=== PATIENT | female | born 1970 | race Caucasian/White ===

== ENCOUNTER 2017-09-16 10:54 | Inpatient (IN) | payer MEDICARE ==
[~2017-09-16] VITALS: Ht 175.3 cm; Wt 133.2 kg
[2017-09-16] VITALS (16 sets, daily range): BP systolic 105–152; BP diastolic 57–82; PULSE 83–104; RESP 15–24; TEMP 98.3–99; O2SAT 96–100
[2017-09-16] MEDS ORDERED: SUCCINYLCHOLINE CHLORIDE 200 MG/10 ML VIAL ONE (11:07)
[2017-09-16] MEDS ORDERED: ETOMIDATE 40 MG/20 ML VIAL ONE (11:07)
[2017-09-16] MEDS ORDERED: SODIUM CHLORIDE 0.9% FLUSH 10 ML FLUSH IV FLUSH PRN (11:30)
[2017-09-16] MEDS ORDERED: ETOMIDATE 20 MG/10 ML VIAL IV PUSH ONE (11:30)
[2017-09-16] MEDS ORDERED: levETIRAcetam INJ 100 ML IV ONE (11:30)
[2017-09-16] MEDS ORDERED: SUCCINYLCHOLINE CHLORIDE 100 MG/5 ML SYRINGE IV PUSH ONE (11:30)
--- NOTE | 2017-09-16 11:46 | RADRPT ---
EXAM DATE: 09/16/2017 11:40 AM EDT AGE/SEX: 47 years / Female INDICATIONS: Syncope, seizures CLINICAL DATA: This is the patient's initial encounter. Patient reports that signs and symptoms have been present for 1 day and indicates a pain score of Nonresponsive. MEDICAL/SURGICAL HISTORY: . seizures per nurse Non-responsive. COMPARISON: No prior [place] exams available for comparison. FINDINGS: Endotracheal tube tip extends into the right mainstem bronchus. Retraction by several centimeters wou ld be suggested. Nasogastric tube descends to the stomach, however the proximal sidehole is in the di stal esophagus. There is mild asymmetric elevation or eventration of the right diaphragm. Accounting for projection, cardiac contours are grossly satisfactory. Right upper lobe aeration is mildly dimini shed which may relate to endotracheal tube positioning.. CONCLUSION: Endotracheal tube needs to be repositioned. Nasogastric tube could be advanced slightly Electronically signed by: Waldemar Romero MD 09/16/2017 11:44 AM EDT
[2017-09-16] MEDS: PROPOFOL 1000 MG/100 ML INJ 100 ML IV PRN ×2 (11:48→21:23)
[2017-09-16 12:01] LABS: AUTOMATED NEUTROPHIL # 5.9 TH/MM3 (1.8-7.7); BASOPHIL # 0.1 TH/MM3 (0-0.2); BASOPHIL % 0.7 % (0.0-2.0); EOSINOPHIL # 0.1 TH/MM3 (0-0.4); HEMATOCRIT 44.1 % (35.0-46.0); HEMOGLOBIN 14.3 GM/DL (11.6-15.3); LYMPH % 23.4 % (9.0-44.0); LYMPHOCYTE # 1.9 TH/MM3 (1.0-4.8); MEAN CELL VOLUME 88.7 FL (80.0-100.0); MEAN CORPUSCULAR HEMOGLOBIN 28.8 PG (27.0-34.0); MEAN CORPUSCULAR HGB CONC 32.5 % (32.0-36.0); MONO % 4.3 % (0.0-8.0); MONOCYTE # 0.4 TH/MM3 (0-0.9); NEUT % 70.6 % (16.0-70.0); PLATELET COUNT 296 TH/MM3 (150-450); RED BLOOD COUNT 4.97 MIL/MM3 (4.00-5.30); RED CELL DISTRIBUTION WIDTH 15.3 % (11.6-17.2); WHITE BLOOD COUNT 8.3 TH/MM3 (4.0-11.0)
--- NOTE | 2017-09-16 12:18 | RADRPT ---
EXAM DATE: 09/16/2017 12:15 PM EDT AGE/SEX: 47 years / Female INDICATIONS: Altered mental status. CLINICAL DATA: This is the patient's initial encounter. Patient reports that signs and symptoms have been present for 1 day and indicates a pain score of Nonresponsive. MEDICAL/SURGICAL HISTORY: Diabetes. None. RADIATION DOSE: 56.35 CTDI (mGy) COMPARISON: No prior exams available for comparison. TECHNIQUE: CT of the head without contrast. Using automated exposure control and adjustment of the mA and/or kV according to patient size, radiation dose was kept as low as reasonably achievable to ob tain optimal diagnostic quality images. FINDINGS: Cerebrum: The ventricles are normal for age. No evidence of midline shift, mass lesion, hemorrhage or acute infarction. No extraaxial fluid collections are seen. Posterior Fossa: The cerebellum and brainstem are intact. The 4th ventricle is midline. The cerebe llopontine angle is unremarkable. Extracranial: The visualized portion of the orbits is intact. Skull: The calvaria is intact. No evidence of skull fracture. CONCLUSION: Negative noncontrast head CT. Electronically signed by: Waldemar Gustafson MD 09/16/2017 12:17 PM EDT
[2017-09-16 12:28] LABS: BACTERIA, URINE MANY /hpf; BILIRUBIN, URINE NEG (NEG); BLOOD, URINE NEG (NEG); GLUCOSE,URINE 1000 mg/dL (NEG); HYALINE CAST, URINE 3 /lpf (RARE); KETONE, URINE NEG (NEG); MUCUS URINE FEW /lpf (OCC); NITRITE,URINE POS (NEG); PH, URINE 5.5 (5.0-8.5); URINE COLOR YELLOW (YELLW/STRAW); URINE LEUKOCYTE ESTERASE MOD (NEG)
[2017-09-16 12:41] LABS: ALBUMIN 3.8 GM/DL (3.4-5.0); ALKALINE PHOSPHATASE 85 U/L (45-117); ALT (GPT) 37 U/L (10-53); AST (GOT) 31 U/L (15-37); BICARBONATE 21.2 MEQ/L (21.0-32.0); BLOOD UREA NITROGEN 8 MG/DL (7-18); CALCIUM 8.6 MG/DL (8.5-10.1); CHLORIDE 107 MEQ/L (98-107); CREATININE 0.79 MG/DL (0.50-1.00); GLOMERULAR FILTRATION RATE 77 ML/MIN (>89); SODIUM (NA) 141 MEQ/L (136-145); TOTAL BILIRUBIN ADULT 0.2 MG/DL (0.2-1.0); TOTAL PROTEIN 7.3 GM/DL (6.4-8.2); TROPONIN I LESS THAN 0.02 NG/ML (0.02-0.05)
[2017-09-16 12:45] LABS: ACETAMINOPHEN LESS THAN 2.0 MCG/ML (10.0-30.0); GLUCOSE,RANDOM 219 MG/DL (74-106)
--- NOTE | 2017-09-16 12:55 | RADRPT ---
EXAM DATE: 09/16/2017 12:49 PM EDT AGE/SEX: 47 years / Female INDICATIONS: ET tube reposition. CLINICAL DATA: This is the patient's subsequent encounter. Patient reports that signs and symptoms h ave been present for 1 day and indicates a pain score of Nonresponsive. MEDICAL/SURGICAL HISTORY: Non-responsive. Non-responsive. COMPARISON: [facility] – [place], CHEST SINGLE AP, 09/16/2017. . FINDINGS: Endotracheal tube has been repositioned and is now in satisfactory position. Nasogastric tube is stab le. There is persistent mild asymmetric elevation of the right diaphragm and mild probable atelectasi s in the right midlung. Opacity in the right suprahilar region and medial apex may be infiltrate or a telectasis. Cardiac contours are grossly unchanged CONCLUSION: Endotracheal tube now in satisfactory position. Persistent right lung parenchymal opacities. Electronically signed by: Waldemar Romero MD 09/16/2017 12:53 PM EDT
[2017-09-16] MEDS ORDERED: VANCOMYCIN INJ 1,250 MG in SODIUM CHLOR 0.9% 250 ML INJ 250 ML IV ONE (13:15)
[2017-09-16] MEDS ORDERED: CEFEPIME INJ 1,000 MG in SODIUM CHLORIDE 0.9% INJ 100 ML IV ONE (13:15)
[2017-09-16] MEDS ORDERED: AZITHROMYCIN INJ 500 MG in SODIUM CHLOR 0.9% 250 ML INJ 250 ML IV ONE (13:15)
--- NOTE | 2017-09-16 13:24 | PD ---
HPI Chief Complaint: Altered Mental Status Time Seen by Provider: 11:16 Travel History International Travel<30 days: No Contact w/Intl Traveler<30days: No Traveled to known affect area: No History of Present Illness HPI Patient is a 47 year old female, brought in by EMS, unresponsive. EMS states that the boyfriend reported possible seizure like activity, but she has no history of this. Patient is unresponsive on arrival, unable to provide any history. The boyfriend came to the ED, brought the patient's medications. He says they have been together for 4 years and he has never known her to do anything like this. He says she does not use any drugs. He does report a psychiatric history /depression history, but does not think she has tried to hurt herself in the past. He says that she has seemed more paranoid in the past week. He says she did not complain of anything bothering her in the past few days. PFSH Past Medical History Anxiety: Yes Depression: Yes High Cholesterol: Yes Diabetes: Yes (METFORMIN) Patient Takes Glucophage: Yes Tetanus Vaccination: Unknown ?: Not Past Surgical History Surgical History: Unable to Obtain Social History Alcohol Use: No (UTO) Tobacco Use: No (UTO) Substance Use: No (UTO) Allergies-Medications (Allergen,Severity, Reaction): Coded Allergies: No Allergy Information Available (Unverified , 09/16/17) Reported Meds & Prescriptions Reported Meds & Active Scripts Active Reported Lorazepam 0.5 Mg Tab 0.5 Mg PO DAILY PRN Metformin (Metformin HCl) 500 Mg Tab 500 Mg PO BIDPC Lovastatin 20 Mg Tab 20 Mg PO DAILY Bupropion HCl ER 24 HR (Bupropion HCl) 300 Mg Tab 300 Mg PO DAILY Fluoxetine (Fluoxetine HCl) 40 Mg Cap 40 Cap PO DAILY Review of Systems ROS Limitations: Unresponsive Physical Exam Exam Limitations: Clinical Condition Narrative GENERAL: Unresponsive, snoring respirations. SKIN: Focused skin assessment warm/dry. No wounds or signs of infection. HEAD: Atraumatic. Normocephalic. EYES: Pupils equal and round and reactive. No scleral icterus. EOMI. ENT: Mucous membranes pink and moist. Blood present on the lips. NECK: Trachea midline. No JVD. CARDIOVASCULAR: Regular rate and rhythm. No murmur appreciated. RESPIRATORY: No accessory muscle use. Clear to auscultation. Breath sounds equal bilaterally. GASTROINTESTINAL: Abdomen soft, non-tender, nondistended. MUSCULOSKELETAL: No obvious deformities. No clubbing. No cyanosis. No edema. NEUROLOGICAL: Unresponsive, randomly opens her eyes, but not purposely. No obvious cranial nerve deficits. Seems to move all of her extremities spontaneously. Data Data Last Documented VS Vital Signs Date Time Temp Pulse Resp B/P (MAP) Pulse Ox O2 Delivery O2 Flow Rate FiO2 09/16/17 13:23 95 19 137/73 (94) 99 Ventilator 50 09/16/17 11:03 15.00 09/16/17 10:57 98.3 Orders Orders Etomidate Inj (Amidate Inj) (09/16/17 11:07) Succinylcholine Inj (Quelicin Inj) (09/16/17 11:07) Electrocardiogram (09/16/17 11:16) Complete Blood Count With Diff (09/16/17 11:16) Comprehensive Metabolic Panel (09/16/17 11:16) Creatine Kinase (Cpk) (09/16/17 11:16) Prothrombin Time / Inr (Pt) (09/16/17 11:16) Act Partial Throm Time (Ptt) (09/16/17 11:16) Troponin I (09/16/17 11:16) Thyroid Stimulating Hormone (09/16/17 11:16) Urinalysis - C+S If Indicated (09/16/17 11:16) Chest, Single Ap (09/16/17 11:16) Ct Brain W/O Iv Contrast(Rout) (09/16/17 11:16) Blood Glucose (09/16/17 11:16) Ecg Monitoring (09/16/17 11:16) Iv Access Insert/Monitor (09/16/17 11:16) Oximetry (09/16/17 11:16) Sodium Chloride 0.9% Flush (Ns Flush) (09/16/17 11:30) Drug Screen, Random Urine (09/16/17 11:16) Alcohol (Ethanol) (09/16/17 11:16) Tylenol (Acetaminophen) (09/16/17 11:16) Salicylates (Aspirin) (09/16/17 11:16) Urinary Catheter Management CASSIE.Q8H (09/16/17 11:16) Ed Urine Pregnancytest Poc (09/16/17 11:16) Succinylcholine Inj (Quelicin Inj) (09/16/17 11:30) Etomidate Inj (Amidate Inj) (09/16/17 11:30) Propofol 1000 Mg/100 Ml Inj (Diprivan 10 (09/16/17 11:30) Levetiracetam Inj (Keppra Inj) (09/16/17 11:30) Chest, Single Ap (09/16/17 ) Urine Culture (09/16/17 11:42) Arterial Blood Gas (Abg) (09/16/17 12:07) CKMB (09/16/17 11:42) CKMB% (09/16/17 11:42) Cefepime Inj (Maxipime Inj) (09/16/17 13:15) Vancomycin Inj (Vancomycin Inj) (09/16/17 13:15) Azithromycin Inj (Zithromax Inj) (09/16/17 13:15) Blood Culture (09/16/17 13:08) Admit To Inpatient (09/16/17 ) Code Status (09/16/17 13:31) Vital Signs (Adult) CASSIE.Q1H (09/16/17 13:31) Activity Bed Rest (09/16/17 13:31) Elevate Head Of Bed (09/16/17 13:31) Neuro Checks . ORDERED (09/16/17 13:31) Famotidine Inj (Pepcid Inj) (09/16/17 13:45) Albuterol-Ipratropium Neb (Duoneb Neb) (09/16/17 16:00) Complete Blood Count With Diff (09/17/17 04:00) Comprehensive Metabolic Panel (09/17/17 04:00) Magnesium (Mg) (09/17/17 04:00) Phosphorus (Po4) (09/17/17 04:00) Portable Eeg (09/16/17 ) Director Database / Telemetry CASSIE.Q8H (09/16/17 13:31) Scd Bilateral/Knee High CASSIE.BID (09/16/17 13:31) ^ Initiate Protocol (09/16/17 13:31) Instruction (09/16/17 13:31) Nursing Information [place] [place] [facility] [place] (09/16/17 13:45) Chlorhexidine 2% Cloth (Chlorhexidine 2% (09/17/17 04:00) Chlorhexidine 2% Cloth (Chlorhexidine 2% (09/16/17 13:45) Mrsa Pcr Surveillance (09/16/17 13:31) Docusate Sodium-Senna (Caron-Colace) (09/16/17 21:00) Magnesium Hydroxide Liq (Milk Of Magnesi (09/16/17 13:45) Sennosides (Senokot) (09/16/17 13:45) Bisacodyl Supp (Dulcolax Supp) (09/16/17 13:45) Lactulose Liq (Lactulose Liq) (09/16/17 13:45) Inpatient Certification (09/16/17 ) Sodium Chlor 0.9% 1000 Ml Inj (Ns 1000 M (09/16/17 13:45) Blood Glucose Goal (Criteria) (09/16/17 13:31) Hypoglycemia 70 Mg/Dl Or < (09/16/17 13:31) Notify Dr: Other (09/16/17 13:31) Dextrose 50% In Adrienne (Vial) Inj (D50w (Vi (09/16/17 13:45) Glucagon Inj (Glucagon Inj) (09/16/17 13:45) Insulin Human Reg Supp Scale (Novolin R (09/16/17 13:45) Admit Order (Ed Use Only) (09/16/17 ) Labs Laboratory Tests Test 09/16/17 11:42 09/16/17 12:07 White Blood Count 8.3 TH/MM3 Red Blood Count 4.97 MIL/MM3 Hemoglobin 14.3 GM/DL Hematocrit 44.1 % Mean Corpuscular Volume 88.7 FL Mean Corpuscular Hemoglobin 28.8 PG Mean Corpuscular Hemoglobin Concent 32.5 % Red Cell Distribution Width 15.3 % Platelet Count 296 TH/MM3 Mean Platelet Volume 8.0 FL Neutrophils (%) (Auto) 70.6 % Lymphocytes (%) (Auto) 23.4 % Monocytes (%) (Auto) 4.3 % Eosinophils (%) (Auto) 1.0 % Basophils (%) (Auto) 0.7 % Neutrophils # (Auto) 5.9 TH/MM3 Lymphocytes # (Auto) 1.9 TH/MM3 Monocytes # (Auto) 0.4 TH/MM3 Eosinophils # (Auto) 0.1 TH/MM3 Basophils # (Auto) 0.1 TH/MM3 CBC Comment DIFF FINAL Differential Comment Prothrombin Time 10.0 SEC Prothromb Time International Ratio 1.0 RATIO Activated Partial Thromboplast Time 25.4 SEC Urine Color YELLOW Urine Turbidity HAZY Urine pH 5.5 Urine Specific Sherrill 1.015 Urine Protein NEG mg/dL Urine Glucose (UA) 1000 mg/dL Urine Ketones NEG mg/dL Urine Occult Blood NEG Urine Nitrite POS Urine Bilirubin NEG Urine Urobilinogen LESS THAN 2.0 MG/DL Urine Leukocyte Esterase MOD Urine RBC 2 /hpf Urine WBC 11 /hpf Urine Bacteria MANY /hpf Urine Hyaline Casts 3 /lpf Urine Mucus FEW /lpf Microscopic Urinalysis Comment CATH-CULTURE IND Blood Urea Nitrogen 8 MG/DL Creatinine 0.79 MG/DL Random Glucose 219 MG/DL Total Protein 7.3 GM/DL Albumin 3.8 GM/DL Calcium Level 8.6 MG/DL Alkaline Phosphatase 85 U/L Aspartate Amino Transf (AST/SGOT) 31 U/L Alanine Aminotransferase (ALT/SGPT) 37 U/L Total Bilirubin 0.2 MG/DL Sodium Level 141 MEQ/L Potassium Level 4.5 MEQ/L Chloride Level 107 MEQ/L Carbon Dioxide Level 21.2 MEQ/L Anion Gap 13 MEQ/L Estimat Glomerular Filtration Rate 77 ML/MIN Total Creatine Kinase 199 U/L Creatine Kinase MB 1.7 NG/ML Creatine Kinase MB % 0.9 % Troponin I LESS THAN 0.02 NG/ML Thyroid Stimulating Hormone 3rd Gen 10.700 uIU/ML Human Chorionic Gonadotropin, Quant 3 MIU/ML Salicylates Level LESS THAN 1.7 MG/DL Urine Opiates Screen NEG Acetaminophen Level LESS THAN 2.0 MCG/ML Urine Barbiturates Screen NEG Urine Amphetamines Screen POS Urine Benzodiazepines Screen NEG Urine Cocaine Screen NEG Urine Cannabinoids Screen NEG Ethyl Alcohol Level LESS THAN 3 MG/DL Blood Gas Puncture Site RT RADIAL Blood Gas Patient Temperature 98.6 Blood Gas HCO3 25 mmol/L Blood Gas Base Excess 0.3 mmol/L Blood Gas Oxygen Saturation 96 % Arterial Blood pH 7.35 Arterial Blood Partial Pressure CO2 46 mmHg Arterial Blood Partial Pressure O2 109 mmHG Arterial Blood Oxygen Content 18.8 Vol % Arterial Blood Carboxyhemoglobin 1.4 % Arterial Blood Methemoglobin 0.8 % Blood Gas Hemoglobin 13.9 G/DL Oxygen Delivery Device VENTILATOR Blood Gas Ventilator Setting Blood Gas Inspired Oxygen 50 % MDM Medical Decision Making Medical Screen Exam Complete: Yes Emergency Medical Condition: Yes Differential Diagnosis ICH vs intoxication vs seizure vs status epilepticus Narrative Course Patient is a 47 year old female who comes in unresponsive. She randomly opens her eyes, but not purposely. She is exhibiting snoring respirations. Decision made to intubate the patient for airway protection. Just before intubation performed patient had another seizure. It lasted only a few seconds, but she still has not regained consciousness. Intubation performed without incident. Labs sent show no acute abnormalities, but UA is positive for UTI. Drug screen positive for amphetamines. Patient started on a Propofol drip. Given Keppra. On review of the medications that were brought in by the boyfriend, patient had a prescription for 45 Ativan that is empty. Tox screen however, is negative for benzos. CXR shows right sided opacities. Given Cefepime, Azithromycin, Vancomycin. Patient will be admitted to ICU for further management. ' I spoke with Dr. Ralph of neurology who suggests loading with Fosphenytoin and dosing 100mg every 8 hrs. This has been ordered. Critical Care Narrative Aggregate critical care time was 45 minutes. Time to perform other separately billable procedures was not included in the critical care time. My time did not include minutes spent treating any other patients simultaneously or on activities that did not directly contribute to the patient's treatment. The services I provided to this patient were to treat and/or prevent clinically significant deterioration that could result in: Serious illness or I provided critical care services requiring my management, as noted below: Chart data review, documentation time, medication orders and management, vital sign assessments/reviewing monitor data, ordering and reviewing lab tests, ordering and interpreting/reviewing x-rays and diagnostic studies, care of the patient and discussion of the patient with the admitting physicians. Procedures Procedure Narrative After the risks and benefits were discussed the following procedure was performed: INTUBATION: The patient was put in optimal position for the procedure. Rapid sequence intubation was initiated by me using 20 milligrams of etomidate IV and 100 milligrams of succinylcholine IV. The patient was intubated with a 8.0 cuffed endotracheal tube. Tube placement was confirmed by visualization of the tube and balloon passing through the cords, capnometry and subsequent chest x-ray. Breath sounds were equal and well aerated bilaterally postintubation. No breath sounds over stomach. Patient tolerated procedure well. Diagnosis Primary Impression: Unresponsive state Additional Impressions: Status epilepticus UTI (urinary tract infection) Qualified Codes: N30.00 - Acute cystitis without hematuria Admitting Information Admitting Physician Requests: it Farida Mccann MD Sep 16, 2017 13:24
[2017-09-16] MEDS ORDERED: FOSPHENYTOIN INJ 1,000 MGPE in SODIUM CHLORIDE 0.9% INJ 50 ML IV ONE (13:45)
[2017-09-16] MEDS ORDERED: LACTULOSE SYRUP 20 GM/30 ML CUP PO PRN (13:45)
[2017-09-16] MEDS ORDERED: CHLORHEXIDINE GLUCONATE 2 % 1 PACK (2 CLOTHS) TOP PRN (13:45)
[2017-09-16] MEDS ORDERED: MAGNESIUM HYDROXIDE SUSP 30 ML CUP PO PRN (13:45)
[2017-09-16] MEDS ORDERED: BISACODYL 10 MG SUPP RECTAL PRN (13:45)
[2017-09-16] MEDS ORDERED: SENNOSIDES 8.6 MG TAB PO PRN (13:45)
[2017-09-16] MEDS ORDERED: NURSING INFORMATION XX SCH (13:45)
[2017-09-16] MEDS ORDERED: GLUCAGON 1 MG/ML VIAL OTHER PRN (13:45)
[2017-09-16] MEDS ORDERED: DEXTROSE 50% IN WATER 50 ML VIAL(D50) IV PUSH PRN (13:45)
[2017-09-16] MEDS ORDERED: FOSPHENYTOIN SODIUM 100 MG PE/2 ML VIAL IV SCH (14:00)
[2017-09-16] MEDS: FAMOTIDINE 20 MG/2 ML VIAL IV PUSH SCH ×2 (14:26→21:22)
[2017-09-16] MEDS: SODIUM CHLOR 0.9% 1000 ML INJ 1,000 ML IV SCH (14:27)
[2017-09-16] MEDS ORDERED: LORazepam 2 MG/ML VIAL IV PUSH PRN (14:30)
[2017-09-16] MEDS: INSULIN NovoLIN REGULAR SUPPLEMENTAL SCALE SQ SCH ×3 (14:36→21:23)
--- NOTE | 2017-09-16 14:47 | MB ---
cc: Byron Ralph MD, PhD DATE: 09/16/2017 REASON FOR CONSULTATION: Seizure. HISTORY OF PRESENT ILLNESS: Ms. Calhoun is a 47-year-old female, who was found obtunded today, brought to the ER, had a generalized seizure. Apparently, the patient has had several seizures this morning. No history of seizure in the past. Her boyfriend brought the medications. She apparently takes Ativan, but the bottle was empty. It is unknown how long she has been out of this for. PAST MEDICAL HISTORY: History of anxiety, depression, diabetes, hypercholesterolemia. MEDICATIONS: Currently, she is on: 1. Propofol. 2. Synthroid. 3. Cerebyx, received 1000 mg loading, 100 mg IV every 8 hours. 4. She received 1000 mg Keppra load. 5. Piperacillin. 6. Famotidine. 7. Senokot. 8. Dulcolax. 9. Lactulose p.r.n. NEUROLOGICAL EXAMINATION: VITAL SIGNS: Blood pressure is 137/73, pulse 95, respiratory rate is 19, temperature is 98.3 degrees. HIGHER CORTICAL FUNCTION: She is obtunded and sedated, does not follow commands. Cranial nerves: The pupils are 2 mm, symmetric and reactive to light. Extraocular movements intact. Motor exam: No spontaneous movement. IMAGING STUDIES: A CT of the brain is normal. LABORATORY DATA: White count is 8300, hemoglobin 14.3, hematocrit 44%, platelet count 296,000. Sodium is 141, potassium 4.5, chloride 107, CO2 of 21.2. The BUN is 8, creatinine 0.79, GFR 77, glucose 219, AST 31, ALT 37. TSH is 10.7. PT 10, INR 1, APTT 25.4. Tox screen positive for amphetamines. Alcohol level less than 3. IMPRESSION: Frequent seizures, now postictal. Her urine toxicology screen positive for amphetamines, which may be contributory. Also, there is a concern of the possibility of withdrawal from Ativan as a cause. RECOMMENDATION: Continue the Cerebyx. We will review the EEG. So far, the preliminary EEG does not show any status epilepticus. Also obtain an MRI of the brain. Byron Ralph MD, PhD FADUMO/CARMEN , 02:30 PM , 02:46 PM
--- NOTE | 2017-09-16 15:26 | MH ---
cc: Nevaeh Doty MD DATE OF ADMISSION: 09/16/2017 HISTORY OF PRESENT ILLNESS: The patient is a 47-year-old female with a history of hypothyroidism, diabetes mellitus, anxiety, depression, who presented to [facility] ED via EMS for altered mental status. Per ED records, EMS found the patient unresponsive and her boyfriend related a possible seizure-like activity. The patient has no history of any seizure disorder. In the ED, she was intubated with etomidate and succinylcholine and placed on full mechanical ventilation for airway protection. A CT scan of the brain was unremarkable. In the ED, she was given 1 gram of Keppra and 1 gram loading dose of Cerebyx. The patient is currently getting an EEG and she is scheduled to undergo MRI of the brain without contrast. Dr. Ralph from Neurology service was notified by ED regarding the above findings. When seen, the patient is sedated with Diprivan and on full mechanical ventilation. ABG post-intubation showed a pH of 7.35, CO2 46, PaO2 109, bicarbonate 25, saturation 96%. Her urine drug screen was positive for amphetamines. PAST MEDICAL HISTORY: Significant for anxiety, depression, hyperlipidemia, diabetes mellitus, hypothyroidism. PAST SURGICAL HISTORY: Unobtainable. SOCIAL HISTORY: Nonsmoker, nondrinker. ALLERGIES: UNOBTAINABLE. MEDICATIONS: Reported medications: Unknown. REVIEW OF SYSTEMS: As per HPI. Otherwise, the rest of the review of systems limited. PHYSICAL EXAMINATION: GENERAL: A 47-year-old female, intubated for airway protection. VITAL SIGNS: Afebrile, pulse of 91, blood pressure 123/68, saturation 100%. Vent settings PRVC rate of 14, tidal volume 500, I time 1.0, PEEP 5, FiO2 50%. HEENT: Atraumatic, normocephalic. Pupils are equal, round, reactive to light and accommodation. Extraocular muscles intact. Conjunctivae pink. Nonicteric sclerae. Oral mucosa within normal. NECK: Supple. No JVD, adenopathy or thyromegaly. Trachea midline. CARDIOVASCULAR: Regular rate and rhythm. Normal S1, S2. No murmurs, rubs or gallops noted. PULMONARY: Bilateral equal air entry. No rales or wheezing. ABDOMEN: Soft, obese, nontender, nondistended, positive bowel sounds. EXTREMITIES: No cyanosis, clubbing. Nonpitting edema. NEUROLOGIC: Intubated, sedated. LABORATORY DATA: Sodium 141, potassium 4.5, chloride 107, CO2 21, BUN 8, creatinine 0.79, glucose 219. Total CK 129, AST 31, ALT 37, total bilirubin 0.2. Troponin less than 0.02. TSH 10.7. WBC 8.3, hemoglobin 14.3, hematocrit 44, platelet count 296. Urine drug screen positive for amphetamines. Radiographic studies: CT brain unremarkable. Chest x-ray showed ET tube above the anthony, right lung parenchymal opacities. Urinalysis positive for moderate leukocyte esterase, many bacteria, 11 WBCs. IMPRESSION: 1. Vent dependent respiratory failure. 2. Altered mental status. 3. Possible seizure disorder. 4. Urinary tract infection. 5. Hyperglycemia with underlying history of diabetes mellitus. 6. Hypothyroidism. 7. Morbid obesity. 8. History of anxiety and depression. RECOMMENDATIONS: 1. Monitor neuro status closely and continue with Diprivan infusion for sedation. Daily sedation vacation when appropriate. CT scan of the brain negative for acute intracranial findings and her urine drug screen positive for amphetamines. The patient for an MRI of the brain without contrast. In addition, she is currently getting EEG. Status post Keppra 1 gram and Cerebyx 1 gram x 1 in the ED. In addition, the patient was placed on Cerebyx 100 mg IV q. 8 hours. Monitor Dilantin level. Dr. Ralph from Neurology service was notified. 2. Continue with vent support and maintain sats above 92%. 3. Bronchodilators in the form of DuoNeb q. 6 hours. We will initiate ICU vent bundle. Decrease FiO2 to 40%. 4. Monitor heart rate and blood pressure closely and maintain MAP greater than 65 mmHg. We will obtain 2D echo to evaluate LV function and rule out regional wall motion abnormalities. Place on NS at 84 mL an hour. 5. Monitor renal function, I's and O's and electrolyte replacement per protocol. IV fluids as stated above. 6. Keep n.p.o. for now and place on Pepcid 20 mg IV every 12 hours. We will start nutritional support within the next 24 hours if the patient remains intubated. 7. Continue with antibiotics in the form of Zosyn and monitor for signs of infections, which include fever and WBC. Followup blood and urine cultures. In addition, we will obtain a sputum culture with Gram stain. She received cefepime, vancomycin and azithromycin in the ED. 8. Place on a medium sliding scale insulin with Accu-Cheks for glycemic control. A TSH measured at 10.7. We will start Synthroid 50 mcg daily. We will check free T4 and free T3 level. 9. Monitor CBC. 10. Gastrointestinal prophylaxis with Pepcid 20 mg every 12 hours and DVT prophylaxis with SCDs for now. 11. Further recommendations will be based on hospital course. MD ANISHA Johnson/CARMEN , 02:54 PM , 03:25 PM
[2017-09-16] MEDS ORDERED: GADODIAMIDE PF 287 MG/ML 5 ML VIAL (for RAD MRI) IVCONTRAST ONE (15:28)
--- NOTE | 2017-09-16 15:35 | MG ---
cc: Byron Ralph MD, PhD DATE OF STUDY: 09/16/2017 EEG TEST NUMBER: [id number]. TECHNIQUE: This is a 17-channel EEG. DESCRIPTION: The background rhythm is generally slow in the delta frequency at roughly 3-4 Hz. At times, there is more of a theta rhythm. There is some muscle artifact in the frontal leads. No epileptiform discharges are identified. No lateralizing features are seen. Photic results in a poor driving response. INTERPRETATION: Abnormal study consistent with a significant encephalopathy versus postictal state. Byron Ralph MD, PhD FADUMO/SB , 03:23 PM , 03:34 PM
--- NOTE | 2017-09-16 15:48 | RADRPT ---
EXAM DATE: 09/16/2017 3:34 PM EDT AGE/SEX: 47 years / Female INDICATIONS: Seizures. CLINICAL DATA: This is the patient's initial encounter. Patient reports that signs and symptoms have been present for 1 day and indicates a pain score of Nonresponsive. MEDICAL/SURGICAL HISTORY: Non-responsive. Non-responsive. [place] [facility] [place]16/[place]. . TECHNIQUE: Multiplanar, multisequence examination of the brain was performed without and with 23 ml O mniscan (gadodiamide) contrast as a single exam dose. FINDINGS: Cerebrum: The ventricles are normal for age. No evidence of midline shift, mass lesion, hemorrhage or acute infarction. No extraaxial fluid collections are seen. The pituitary gland and suprasellar cistern are normal in configuration. White Matter: No significant signal abnormalities are seen in the white matter. Posterior Fossa: The cerebellum and brainstem are intact. The 4th ventricle is midline. The cerebel lopontine angle is unremarkable. The cerebellar tonsils are normal in position. Diffusion Imaging: No focal areas of restricted diffusion are seen. No evidence of acute infarction . Extracranial: The visualized portions of the orbits and paranasal sinuses are unremarkable. Post Contrast: No abnormal areas of parenchymal or dural enhancement. No evidence of blood-brain ba rrier breakdown. CONCLUSION: Negative MR Brain with and without contrast. Electronically signed by: Waldemar Romero MD 09/16/2017 3:47 PM EDT
[2017-09-16] MEDS: RESP: ALBUTEROL 2.5 MG/IPRATROPIUM 0.5 MG NEB (SCH) INH ×2 (16:00→20:23)
[2017-09-16] MEDS ORDERED: LOVA20TA PO (17:09)
[2017-09-16] MEDS ORDERED: METF500T PO (17:09)
[2017-09-16] MEDS ORDERED: BUPR300T PO (17:09)
[2017-09-16] MEDS ORDERED: FLUO40CA PO (17:09)
[2017-09-16] MEDS ORDERED: LORA0.5T PO (17:09)
[2017-09-16] MEDS: PIPERACIL-TAZO 4.5 GM PREMIX 100 ML IV SCH ×2 (17:19→21:22)
[2017-09-16] MEDS: FOSPHENYTOIN SODIUM 100 MG PE/2 ML VIAL IV SCH (21:23)
[2017-09-16] MEDS: DOCUSATE SODIUM 50 MG/SENNA 8.6 MG TAB PO SCH (21:23)
[2017-09-17] VITALS (19 sets, daily range): BP systolic 110–135; BP diastolic 67–84; PULSE 84–98; RESP 16–29; TEMP 99–99.9; O2SAT 93–97
[2017-09-17] MEDS: PIPERACIL-TAZO 4.5 GM PREMIX 100 ML IV SCH ×4 (00:50→22:00)
[2017-09-17] MEDS: SODIUM CHLOR 0.9% 1000 ML INJ 1,000 ML IV SCH (00:51)
[2017-09-17] MEDS: INSULIN NovoLIN REGULAR SUPPLEMENTAL SCALE SQ SCH ×6 (01:00→21:45)
[2017-09-17] MEDS: RESP: ALBUTEROL 2.5 MG/IPRATROPIUM 0.5 MG NEB (SCH) INH ×4 (03:51→21:05)
[2017-09-17 04:47] LABS: AUTOMATED NEUTROPHIL # 9.7 TH/MM3 (1.8-7.7); BASOPHIL # 0.1 TH/MM3 (0-0.2); BASOPHIL % 0.4 % (0.0-2.0); EOSINOPHIL % 0.3 % (0.0-4.0); HEMATOCRIT 38.8 % (35.0-46.0); HEMOGLOBIN 12.7 GM/DL (11.6-15.3); LYMPH % 11.6 % (9.0-44.0); LYMPHOCYTE # 1.4 TH/MM3 (1.0-4.8); MEAN CORPUSCULAR HEMOGLOBIN 28.7 PG (27.0-34.0); MEAN CORPUSCULAR HGB CONC 32.6 % (32.0-36.0); MEAN PLATELET VOLUME 7.9 FL (7.0-11.0); MONO % 4.6 % (0.0-8.0); MONOCYTE # 0.5 TH/MM3 (0-0.9); NEUT % 83.1 % (16.0-70.0); PLATELET COUNT 261 TH/MM3 (150-450); RED BLOOD COUNT 4.41 MIL/MM3 (4.00-5.30); RED CELL DISTRIBUTION WIDTH 15.4 % (11.6-17.2); WHITE BLOOD COUNT 11.7 TH/MM3 (4.0-11.0)
[2017-09-17 05:10] LABS: ALBUMIN 3.3 GM/DL (3.4-5.0); AST (GOT) 26 U/L (15-37); BICARBONATE 23.7 MEQ/L (21.0-32.0); BLOOD UREA NITROGEN 9 MG/DL (7-18); CALCIUM 8.1 MG/DL (8.5-10.1); CHLORIDE 108 MEQ/L (98-107); CREATININE 0.72 MG/DL (0.50-1.00); GLOMERULAR FILTRATION RATE 86 ML/MIN (>89); GLUCOSE,RANDOM 167 MG/DL (74-106); MAGNESIUM 2.1 MG/DL (1.5-2.5); SODIUM (NA) 142 MEQ/L (136-145)
[2017-09-17 05:22] LABS: ALKALINE PHOSPHATASE 60 U/L (45-117); ALT (GPT) 35 U/L (10-53); FREE T3 1.53 PG/ML (2.18-3.98); FREE T4 1.16 NG/DL (0.76-1.46); PHENYTOIN (DILANTIN) 6.2 MCG/ML (10.0-20.0); PHOSPHORUS 2.7 MG/DL (2.5-4.9); TOTAL BILIRUBIN ADULT 0.3 MG/DL (0.2-1.0); TOTAL PROTEIN 6.3 GM/DL (6.4-8.2)
[2017-09-17] MEDS: LEVOTHYROXINE SODIUM 50 MCG TAB PO SCH (05:53)
[2017-09-17] MEDS: FOSPHENYTOIN SODIUM 100 MG PE/2 ML VIAL IV SCH ×2 (05:53→13:18)
[2017-09-17] MEDS: CHLORHEXIDINE GLUCONATE 2 % 1 PACK (2 CLOTHS) TOP SCH (05:53)
[2017-09-17] MEDS: PROPOFOL 1000 MG/100 ML INJ 100 ML IV PRN (05:54)
[2017-09-17] MEDS: DOCUSATE SODIUM 50 MG/SENNA 8.6 MG TAB PO SCH ×2 (07:41→22:00)
[2017-09-17] MEDS: FAMOTIDINE 20 MG/2 ML VIAL IV PUSH SCH ×2 (07:42→22:00)
--- NOTE | 2017-09-17 10:30 | HHI.CCPN ---
Subjective Remarks/Hospital Course Patient is a 47-year-old female with a history of hypothyroidism, diabetes mellitus, anxiety, depression, who presented to [facility] ED via EMS for altered mental status. Per ED records, EMS found the patient unresponsive and her boyfriend related a possible seizure-like activity. The patient has no history of any seizure disorder. In the ED, she was intubated with etomidate and succinylcholine and placed on full mechanical ventilation for airway protection. A CT scan of the brain was unremarkable. In the ED, she was given 1 gram of Keppra and 1 gram loading dose of Cerebyx. The patient is currently getting an EEG and she is scheduled to undergo MRI of the brain without contrast. Dr. Ralph from Neurology service was notified by ED regarding the above findings. When seen, the patient is sedated with Diprivan and on full mechanical ventilation. ABG post-intubation showed a pH of 7.35, CO2 46, PaO2 109, bicarbonate 25, saturation 96%. Her urine drug screen was positive for amphetamines. 09/17 Patient remains sedated and intubated. MRI brain yesterday unremarkable. Afebrile.. Objective Vital Signs Date Time Temp Pulse Resp B/P (MAP) Pulse Ox O2 Delivery O2 Flow Rate FiO2 09/17/17 10:00 84 09/17/17 08:58 96 40 09/17/17 08:00 99.0 24 125/72 (89) 09/16/17 15:21 Ventilator 09/16/17 11:03 15.00 Intake and Output 09/17/17 09/17/17 09/18/17 08:00 16:00 00:00 Intake Total 752 ml Output Total 450 ml Balance 302 ml Result Diagram: 09/17/17 0355 09/17/17 0355 Other Results Laboratory Tests Test 09/16/17 11:42 09/16/17 12:07 09/16/17 16:35 09/17/17 03:55 White Blood Count 8.3 TH/MM3 11.7 TH/MM3 Red Blood Count 4.97 MIL/MM3 4.41 MIL/MM3 Hemoglobin 14.3 GM/DL 12.7 GM/DL Hematocrit 44.1 % 38.8 % Mean Corpuscular Volume 88.7 FL 88.0 FL Mean Corpuscular Hemoglobin 28.8 PG 28.7 PG Mean Corpuscular Hemoglobin Concent 32.5 % 32.6 % Red Cell Distribution Width 15.3 % 15.4 % Platelet Count 296 TH/MM3 261 TH/MM3 Mean Platelet Volume 8.0 FL 7.9 FL Neutrophils (%) (Auto) 70.6 % 83.1 % Lymphocytes (%) (Auto) 23.4 % 11.6 % Monocytes (%) (Auto) 4.3 % 4.6 % Eosinophils (%) (Auto) 1.0 % 0.3 % Basophils (%) (Auto) 0.7 % 0.4 % Neutrophils # (Auto) 5.9 TH/MM3 9.7 TH/MM3 Lymphocytes # (Auto) 1.9 TH/MM3 1.4 TH/MM3 Monocytes # (Auto) 0.4 TH/MM3 0.5 TH/MM3 Eosinophils # (Auto) 0.1 TH/MM3 0.0 TH/MM3 Basophils # (Auto) 0.1 TH/MM3 0.1 TH/MM3 CBC Comment DIFF FINAL DIFF FINAL Differential Comment Prothrombin Time 10.0 SEC Prothromb Time International Ratio 1.0 RATIO Activated Partial Thromboplast Time 25.4 SEC Urine Color YELLOW Urine Turbidity HAZY Urine pH 5.5 Urine Specific [place] 1.015 Urine Protein NEG mg/dL Urine Glucose (UA) 1000 mg/dL Urine Ketones NEG mg/dL Urine Occult Blood NEG Urine Nitrite POS Urine Bilirubin NEG Urine Urobilinogen LESS THAN 2.0 MG/DL Urine Leukocyte Esterase MOD Urine RBC 2 /hpf Urine WBC 11 /hpf Urine Bacteria MANY /hpf Urine Hyaline Casts 3 /lpf Urine Mucus FEW /lpf Microscopic Urinalysis Comment CATH-CULTURE IND Blood Urea Nitrogen 8 MG/DL 9 MG/DL Creatinine 0.79 MG/DL 0.72 MG/DL Random Glucose 219 MG/DL 167 MG/DL Total Protein 7.3 GM/DL 6.3 GM/DL Albumin 3.8 GM/DL 3.3 GM/DL Calcium Level 8.6 MG/DL 8.1 MG/DL Alkaline Phosphatase 85 U/L 60 U/L Aspartate Amino Transf (AST/SGOT) 31 U/L 26 U/L Alanine Aminotransferase (ALT/SGPT) 37 U/L 35 U/L Total Bilirubin 0.2 MG/DL 0.3 MG/DL Sodium Level 141 MEQ/L 142 MEQ/L Potassium Level 4.5 MEQ/L 4.0 MEQ/L Chloride Level 107 MEQ/L 108 MEQ/L Carbon Dioxide Level 21.2 MEQ/L 23.7 MEQ/L Anion Gap 13 MEQ/L 10 MEQ/L Estimat Glomerular Filtration Rate 77 ML/MIN 86 ML/MIN Total Creatine Kinase 199 U/L Creatine Kinase MB 1.7 NG/ML Creatine Kinase MB % 0.9 % Troponin I LESS THAN 0.02 NG/ML Thyroid Stimulating Hormone 3rd Gen 10.700 uIU/ML 2.470 uIU/ML Human Chorionic Gonadotropin, Quant 3 MIU/ML Salicylates Level LESS THAN 1.7 MG/DL Urine Opiates Screen NEG Acetaminophen Level LESS THAN 2.0 MCG/ML Urine Barbiturates Screen NEG Urine Amphetamines Screen POS Urine Benzodiazepines Screen NEG Urine Cocaine Screen NEG Urine Cannabinoids Screen NEG Ethyl Alcohol Level LESS THAN 3 MG/DL Blood Gas Puncture Site RT RADIAL Blood Gas Patient Temperature 98.6 Blood Gas HCO3 25 mmol/L Blood Gas Base Excess 0.3 mmol/L Blood Gas Oxygen Saturation 96 % Arterial Blood pH 7.35 Arterial Blood Partial Pressure CO2 46 mmHg Arterial Blood Partial Pressure O2 109 mmHG Arterial Blood Oxygen Content 18.8 Vol % Arterial Blood Carboxyhemoglobin 1.4 % Arterial Blood Methemoglobin 0.8 % Blood Gas Hemoglobin 13.9 G/DL Oxygen Delivery Device VENTILATOR Blood Gas Ventilator Setting Blood Gas Inspired Oxygen 50 % Nasal Screen MRSA (PCR) MRSA NOT DETECTED Phosphorus Level 2.7 MG/DL Magnesium Level 2.1 MG/DL Free Thyroxine 1.16 NG/DL Free Triiodothyronine (T3) pg/dL 1.53 PG/ML Phenytoin (Dilantin) Level 6.2 MCG/ML Imaging Last Impressions Head CT 09/16/17 111 Signed Impressions: CONCLUSION: Negative noncontrast head CT. Chest X-Ray 09/16/171115 Signed Impressions: CONCLUSION: Endotracheal tube needs to be repositioned. Nasogastric tube could be advanced slightly Brain MRI 09/16/17 0000 Signed Impressions: CONCLUSION: Negative MR Brain with and without contrast. Objective Remarks GENERAL: Patient is 47 yo intubated and sedated SKIN: Warm and dry. HEAD: Normocephalic. EYES: No scleral icterus. No injection or drainage. NECK: Supple, trachea midline. No JVD or lymphadenopathy. CARDIOVASCULAR: Regular rate and rhythm without murmurs, gallops, or rubs. RESPIRATORY: Breath sounds equal bilaterally. No accessory muscle use. GASTROINTESTINAL: Abdomen soft, non-tender, nondistended. MUSCULOSKELETAL: No cyanosis, or edema. Neuro: sedated A/P Assessment and Plan 1. VDRF 2. AMS 3. Possible seizure disorder. 4. Urinary tract infection. 5. Hyperglycemia 6. Hypothyroidism. 7. Morbid obesity. 8. History of anxiety and depression. Plan Neuro: On Diprivan infusion for sedation. Daily sedation vacation. CT brain negative for acute intracranial findings. UDS: positive for amphetamines. MRI brain: Unremarkable. Given Keppra and Cerbyx in ED. on Cerebyx 100 mg IV q. 8 hours.Dilantin level: 6.7 Neuro is following- Dr. Ralph- Follow up on EEG results Pulm: Continue with vent support and maintain sats above 92%. Bronchodilators, ICU vent bundle. Start SBT as pablo and possible extubation today : Monitor HR and BP and maintain MAP> 65 mmHg. For 2D echo today : Monitor renal function, I's and O's and electrolyte replacement per protocol. On NS@84ml/hr GI: on Pepcid 20 mg IV every 12 hours. Start tube feeds today if remains intubated. ID: Continue with abx( Zosyn) and monitor for signs of infections( fever and WBC). Followup on cultures from 09/16 Endo: On medium SSI with Accu-Cheks for glycemic control. On Synthroid 50mcg daily. TSH: 2.47 today from 10.7 yesterday, FT3: 1.53 Heme: Monitor CBC. GI prophylaxis with Pepcid 20 mg every 12 hours and DVT prophylaxis with SCDs/ heparin SQ Spoke to patient;s family updated them on her condition all questions answered and they voiced understanding. They are also requesting to talk to Dr. Ralph . Patient was self extubated and now is on 4L oxygen with good sats. Awake and alert. Passed bedside swallow eval. No recurrent seizures. Will sign off and transfer care to [facility]. Level 3 Nevaeh Doty MD Sep 17, 2017 10:30
--- NOTE | 2017-09-17 16:22 | EKG ---
Date Performed: 09/16/2017 Time Performed: 12:46:56 PTAGE: 47 years EKG: Sinus tachycardia Moderate intraventricular conduction delay Nonspecific T-wave abnormality Delayed R-wave transition NO PREVIOUS TRACING DOCTOR: Vesta Tee Interpretating Date/Time 09/17/2017 16:20:49
--- NOTE | 2017-09-17 21:37 | HHI.PR ---
Review/Management Diagnosis new onset GTC sz Plan change cerebyx to po dilantin give additional cerebyx 500 mg due to subtherapeutic phenytoin level and recheck level in am Diagnosis/Plan: Subjective Subjective Comments No acute events reported No headache no sz Active Medications Current Medications Medications (Trade) Dose Ordered Sig/Meng Route Start Time Stop Time Status Last Admin (NS Flush) 2 ml UNSCH PRN IV FLUSH 09/16/17 11:30 (Pepcid Inj) 20 mg Q12HR IV PUSH 09/16/17 13:45 09/17/17 07:42 (Duoneb Neb) 1 ampule Q6HR NEB INH 09/16/17 16:00 09/17/17 15:20 ([facility] Nursing Information) 1 Q361D XX 09/16/17 13:45 09/16/17 13:45 (Chlorhexidine 2% Cloth) 3 pack Taper DAILY@04 TOP 09/17/17 04:00 09/13/18 03:59 09/17/17 05:53 (Chlorhexidine 2% Cloth) 3 pack UNSCH PRN TOP 09/16/17 13:45 (Caron-Colace) 1 tab BID PO 09/16/17 21:00 09/17/17 07:41 (Milk Of Magnesia Liq) 30 ml Q12H PRN PO 09/16/17 13:45 (Senokot) 17.2 mg Q12H PRN PO 09/16/17 13:45 (Dulcolax Supp) 10 mg DAILY PRN RECTAL 09/16/17 13:45 (Lactulose Liq) 30 ml DAILY PRN PO 09/16/17 13:45 (D50w (Vial) Inj) 50 ml UNSCH PRN IV PUSH 09/16/17 13:45 (Glucagon Inj) 1 mg UNSCH PRN OTHER 09/16/17 13:45 (NovoLIN R SUPPLEMENTAL SCALE) 1 Q4H SQ 09/16/17 13:45 09/16/17 14:36 (Synthroid) 50 mcg DAILY@0600 PO 09/17/17 06:00 09/17/17 05:53 (Cerebyx Inj) 100 mgpe Q8HR IV 09/16/17 22:00 09/17/17 13:18 Piperacillin Sod/ Tazobactam Sod 100 ml @ 200 mls/hr Q6H IV 09/16/17 14:00 09/17/17 13:19 (Ativan Inj) 1 mg Q4H PRN IV PUSH 09/16/17 14:30 09/17/17 01:00 (Heparin Inj) 5,000 units Q12HR SQ 09/17/17 21:00 Allergies Allergies Coded Allergies No Allergy Information Available (Unverified09/16/17) Exam I&O / VS 09/17/17 09/17/17 09/18/17 15:00 23:00 07:00 Intake Total 100 ml 530 ml Output Total 600 ml Balance 100 ml -70 ml Intake IV Total 100 ml 430 ml Tube Irrigant 100 ml Output Urine Total 600 ml # Bowel Movements 0 Vital Signs Date Time Temp Pulse Resp B/P (MAP) Pulse Ox O2 Delivery O2 Flow Rate FiO2 09/17/17 18:00 94 09/17/17 16:00 99.4 91 29 110/80 (90) 93 09/17/17 16:00 91 09/17/17 15:16 93 Nasal Cannula 6 09/17/17 14:00 98 09/17/17 12:26 95 40 09/17/17 12:26 40 09/17/17 12:00 99.3 88 16 130/68 (88) 94 09/17/17 12:00 40 09/17/17 12:00 88 09/17/17 10:00 84 09/17/17 08:58 96 40 09/17/17 08:00 99.0 87 24 125/72 (89) 95 09/17/17 08:00 40 09/17/17 08:00 87 09/17/17 06:00 91 09/17/17 04:33 97 50 09/17/17 04:00 99.2 90 17 135/76 (95) 96 09/17/17 04:00 50 09/17/17 04:00 90 09/17/17 02:00 86 09/17/17 01:40 96 50 09/17/17 00:00 85 09/17/17 00:00 50 09/17/17 00:00 99.0 85 20 120/67 (84) 95 09/16/17 22:13 97 50 09/16/17 22:00 90 Exam Comments alert, oriented, speech normal Cn intact MOTOR--08/17 BUE Objective Radiology Results MRI brain--normal Micro and Labs Laboratory Tests Test 09/17/17 03:55 09/17/17 14:00 White Blood Count 11.7 Red Blood Count 4.41 Hemoglobin 12.7 Hematocrit 38.8 Mean Corpuscular Volume 88.0 Mean Corpuscular Hemoglobin 28.7 Mean Corpuscular Hemoglobin Concent 32.6 Red Cell Distribution Width 15.4 Platelet Count 261 Mean Platelet Volume 7.9 Neutrophils (%) (Auto) 83.1 Lymphocytes (%) (Auto) 11.6 Monocytes (%) (Auto) 4.6 Eosinophils (%) (Auto) 0.3 Basophils (%) (Auto) 0.4 Neutrophils # (Auto) 9.7 Lymphocytes # (Auto) 1.4 Monocytes # (Auto) 0.5 Eosinophils # (Auto) 0.0 Basophils # (Auto) 0.1 CBC Comment DIFF FINAL Differential Comment Blood Urea Nitrogen 9 Creatinine 0.72 Random Glucose 167 Total Protein 6.3 Albumin 3.3 Calcium Level 8.1 Phosphorus Level 2.7 Magnesium Level 2.1 Alkaline Phosphatase 60 Aspartate Amino Transf (AST/SGOT) 26 Alanine Aminotransferase (ALT/SGPT) 35 Total Bilirubin 0.3 Sodium Level 142 Potassium Level 4.0 Chloride Level 108 Carbon Dioxide Level 23.7 Anion Gap 10 Estimat Glomerular Filtration Rate 86 Free Thyroxine 1.16 Free Triiodothyronine (T3) pg/dL 1.53 Thyroid Stimulating Hormone 3rd Gen 2.470 Phenytoin (Dilantin) Level 6.2 Blood Gas Puncture Site RT RADIAL Blood Gas Patient Temperature 98.6 Blood Gas HCO3 26 Blood Gas Base Excess 2.0 Blood Gas Oxygen Saturation 93 Arterial Blood pH 7.43 Arterial Blood Partial Pressure CO2 40 Arterial Blood Partial Pressure O2 77 Arterial Blood Oxygen Content 16.3 Arterial Blood Carboxyhemoglobin 0.9 Arterial Blood Methemoglobin 1.5 Blood Gas Hemoglobin 12.4 Oxygen Delivery Device VENTILATOR Blood Gas Ventilator Setting CPAP 5/PS 10 Blood Gas Inspired Oxygen 40 Date/Time Source Procedure Growth Status 09/16/17 13:15 Blood Peripheral Aerobic Blood Culture - Preliminary NO GROWTH IN 1 DAY Resulted 09/16/17 13:15 Blood Peripheral Anaerobic Blood Culture - Preliminary NO GROWTH IN 1 DAY Resulted 09/16/17 16:35 Sputum Endotracheal Gram Stain - Final Resulted 09/16/17 16:35 Sputum Endotracheal Sputum Culture - Preliminary HEAVY GROWTH NORMAL RESPIRATORY WOODY... Resulted 09/16/17 11:42 Urine Catheterized Urine Urine Culture - Preliminary Gram Negative Cyrus Resulted Diagnostic Tests EEG--mild slowing (probably post ictal) Byron Ralph MD PhD Sep 17, 2017 21:37
[2017-09-17] MEDS ORDERED: FOSPHENYTOIN SODIUM 500 MG PE/10 ML VIAL IV ONE (21:45)
[2017-09-17] MEDS ORDERED: FOSPHENYTOIN INJ 500 MGPE in SODIUM CHLORIDE 0.9% INJ 50 ML IV ONE (22:00)
[2017-09-17] MEDS: HEPARIN SODIUM - SQ 10,000 UNITS/ML VIAL SQ SCH (22:01)
[2017-09-17] MEDS: PHENYTOIN SODIUM 100 MG CAP PO SCH (22:01)
[2017-09-18] VITALS (31 sets, daily range): BP systolic 126–178; BP diastolic 75–116; PULSE 90–99; RESP 1–42; TEMP 98–99.6; O2SAT 88–97
[2017-09-18] MEDS: INSULIN NovoLIN REGULAR SUPPLEMENTAL SCALE SQ SCH ×6 (01:45→20:40)
[2017-09-18] MEDS: RESP: ALBUTEROL 2.5 MG/IPRATROPIUM 0.5 MG NEB (SCH) INH ×4 (02:28→20:30)
[2017-09-18] MEDS: PIPERACIL-TAZO 4.5 GM PREMIX 100 ML IV SCH ×4 (02:48→20:20)
[2017-09-18] MEDS: CHLORHEXIDINE GLUCONATE 2 % 1 PACK (2 CLOTHS) TOP SCH (04:00)
[2017-09-18 05:30] LABS: BASOPHIL # 0.1 TH/MM3 (0-0.2); BASOPHIL % 0.5 % (0.0-2.0); EOSINOPHIL # 0.1 TH/MM3 (0-0.4); EOSINOPHIL % 0.8 % (0.0-4.0); HEMATOCRIT 38.1 % (35.0-46.0); HEMOGLOBIN 12.4 GM/DL (11.6-15.3); LYMPH % 16.3 % (9.0-44.0); LYMPHOCYTE # 1.7 TH/MM3 (1.0-4.8); MEAN CELL VOLUME 88.9 FL (80.0-100.0); MEAN CORPUSCULAR HGB CONC 32.6 % (32.0-36.0); MONO % 4.3 % (0.0-8.0); MONOCYTE # 0.4 TH/MM3 (0-0.9); NEUT % 78.1 % (16.0-70.0); PLATELET COUNT 213 TH/MM3 (150-450); RED BLOOD COUNT 4.29 MIL/MM3 (4.00-5.30); RED CELL DISTRIBUTION WIDTH 14.9 % (11.6-17.2); WHITE BLOOD COUNT 10.2 TH/MM3 (4.0-11.0)
[2017-09-18] MEDS: LEVOTHYROXINE SODIUM 50 MCG TAB PO SCH (05:45)
[2017-09-18 05:52] LABS: BICARBONATE 26.3 MEQ/L (21.0-32.0); CALCIUM 7.5 MG/DL (8.5-10.1); CREATININE 0.6 MG/DL (0.50-1.00)
--- NOTE | 2017-09-18 08:06 | HHI.PR ---
Subjective Remarks f/u; respiratory failure/ possible seizure in no acute distress. but still on oxygen mask. O2 sat drops easily when off the mask. denies pain. no fever. d/w the RN. Objective Vitals Vital Signs Date Time Temp Pulse Resp B/P (MAP) Pulse Ox O2 Delivery O2 Flow Rate FiO2 09/18/17 06:00 91 09/18/17 04:00 92 09/18/17 04:00 99.6 92 42 163/84 (110) 91 09/18/17 02:00 90 09/18/17 01:49 91 Venturi Mask 6.00 50 09/18/17 00:00 99.6 90 19 126/79 (95) 93 09/18/17 00:00 90 09/17/17 22:00 91 09/17/17 21:05 93 Nasal Cannula 5.00 09/17/17 20:00 99.9 91 23 135/84 (101) 94 09/17/17 20:00 91 09/17/17 18:00 94 09/17/17 16:00 99.4 91 29 110/80 (90) 93 09/17/17 16:00 91 09/17/17 15:16 93 Nasal Cannula 6 09/17/17 14:00 98 09/17/17 12:26 95 40 09/17/17 12:26 40 09/17/17 12:00 99.3 88 16 130/68 (88) 94 09/17/17 12:00 40 09/17/17 12:00 88 09/17/17 10:00 84 09/17/17 08:58 96 40 I/O 09/17/17 09/17/17 09/17/17 09/18/17 09/18/17 09/18/17 07:00 15:00 23:00 07:00 15:00 23:00 Intake Total 752 ml 100 ml 530 ml 809 ml Output Total 450 ml 600 ml 450 ml Balance 302 ml 100 ml -70 ml 359 ml Intake IV Total 752 ml 100 ml 430 ml 809 ml Tube Irrigant 100 ml Output Urine Total 450 ml 600 ml 450 ml # Bowel Movements 0 0 0 Result Diagram: 09/18/17 0503 09/18/17 0503 Imaging Last Impressions Head CT 09/16/17 1116 Signed Impressions: CONCLUSION: Negative noncontrast head CT. Chest X-Ray 09/16/17 1116 Signed Impressions: CONCLUSION: Endotracheal tube needs to be repositioned. Nasogastric tube could be advanced slightly Brain MRI 09/16/17 0000 Signed Impressions: CONCLUSION: Negative MR Brain with and without contrast. Objective Remarks GENERAL: on oxygen mask CARDIOVASCULAR: Regular rate and regular rhythm without murmurs, gallops, or rubs. RESPIRATORY: Clear to auscultation. Breath sounds equal bilaterally. No wheezes , rales, or rhonchi. GASTROINTESTINAL: Abdomen soft, non-tender, nondistended. Normal, active bowel sounds MUSCULOSKELETAL: Extremities without clubbing, cyanosis, or edema. NEURO: Alert & Oriented x4 to person, place, time, situation. Moves all ext x4 Procedures intubation/extubation Medications and IVs Inpatient Medications Albuterol/ Ipratropium (Duoneb Neb) 1 ampule Q6HR NEB INH Last administered on 09/18/17at 02:28; Start 09/16/17 at 16:00 Azithromycin 500 mg/Sodium Chloride 250 ml @ 250 mls/hr ONCE ONCE IV Last administered on 09/16/17at 13:22; Start 09/16/17 at 13:15; Stop 09/16/17 at 14:14; Status DC Bisacodyl (Dulcolax Supp) 10 mg DAILY PRN RECTAL SEVERE CONSITIPATION; Start at 13:45 Cefepime HCl 1000 mg/Sodium Chloride 100 ml @ 200 mls/hr ONCE ONCE IV Last administered on 09/16/17at 14:27; Start 09/16/17 at 13:15; Stop 09/16/17 at 13:44; Status DC Chlorhexidine Gluconate (Chlorhexidine 2% Cloth) 3 pack UNSCH PRN TOP HYGIENIC CARE; Start 09/16/17 at 13:45 Dextrose (D50w (Vial) Inj) 50 ml UNSCH PRN IV PUSH HYPOGLYCEMIA-SEE COMMENTS; Start 09/16/17 at 13:45 Etomidate (Amidate Inj) 20 mg ONCE ONCE IV PUSH Last administered on 09/16/17at 11:46; Start 09/16/17 at 11:30; Stop 09/16/17 at 11:31; Status DC Famotidine (Pepcid Inj) 20 mg Q12HR IV PUSH Last administered on 09/17/17at 22:00 ; Start 09/16/17 at 13:45 Fosphenytoin Sodium (Cerebyx Inj) 100 mgpe Q8HR IV Last administered on at 13:18; Start 09/16/17 at 22:00; Stop 09/17/17 at 21:35; Status DC Fosphenytoin Sodium 1000 mgpe/ Sodium Chloride 70 ml @ 280 mls/hr ONCE ONCE IV Last administered on 09/16/17at 14:26; Start 09/16/17 at 13:45; Stop 09/16/17 at 13:59; Status DC Fosphenytoin Sodium 500 mgpe/ Sodium Chloride 60 ml @ 240 mls/hr ONCE ONCE IV Last administered on 09/17/17at 23:35; Start 09/17/17 at 22:00; Stop 09/17/17 at 22:14; Status DC Glucagon (Glucagon Inj) 1 mg UNSCH PRN OTHER HYPOGLYCEMIA-SEE COMMENTS; Start 09/16/17 at 13:45 Heparin Sodium (Porcine) (Heparin Inj) 5,000 units Q12HR SQ Last administered on 09/17/17at 22:01; Start 09/17/17 at 21:00 Insulin Human Regular (NovoLIN R SUPPLEMENTAL SCALE) 1 Q4H SQ Last administered on 09/16/17at 14:36; Start 09/16/17 at 13:45 Lactulose (Lactulose Liq) 30 ml DAILY PRN PO SEVERE CONSITIPATION; Start at 13:45 Levetriacetam 100 ml @ 400 mls/hr BOLUS ONCE IV Last administered on at 12:16; Start 09/16/17 at 11:30; Stop 09/16/17 at 11:44; Status DC Levothyroxine Sodium (Synthroid) 50 mcg DAILY@0600 PO Last administered on at 05:45; Start 09/17/17 at 06:00 Lorazepam (Ativan Inj) 1 mg Q4H PRN IV PUSH SEIZURES Last administered on at 01:00; Start 09/16/17 at 14:30 Magnesium Hydroxide (Milk Of Magnesia Liq) 30 ml Q12H PRN PO Mild constipation ; Start 09/16/17 at 13:45 Miscellaneous Information ([facility] Nursing Information) 1 Q361D XX Last administered on 09/16/17at 13:45; Start 09/16/17 at 13:45 Phenytoin (Dilantin) 200 mg BID PO Last administered on 09/17/17at 22:01; Start 09/17/17 at 21:45 Piperacillin Sod/ Tazobactam Sod 100 ml @ 200 mls/hr Q6H IV Last administered on 09/18/17 02:48; Start 09/16/17 at 14:00 Propofol 100 ml @ 0 mls/hr TITRATE PRN IV SEDATION Last administered on at 05:54; Start 09/16/17 at 11:30; Stop 09/17/17 at 14:56; Status DC Senna/Docusate Sodium (Caron-Colace) 1 tab BID PO Last administered on 09/17/17at 22:00; Start 09/16/17 at 21:00 Sennosides (Senokot) 17.2 mg Q12H PRN PO Moderate constipation; Start 09/16/17 at 13:45 Sodium Chloride 1,000 ml @ 84 mls/hr [id number] IV Last administered on 09/17/17at 00:51; Start 09/16/17 at 13:45; Stop 09/17/17 at 14:56; Status DC Sodium Chloride (NS Flush) 2 ml UNSCH PRN IV FLUSH FLUSH AFTER USING IV ACCESS ; Start 09/16/17 at 11:30 Succinylcholine Chloride (Quelicin Inj) 100 mg ONCE ONCE IV PUSH Last administered on 09/16/17 11:47; Start 09/16/17 at 11:30; Stop 09/16/17 at 11:31; Status DC Vancomycin HCl 1250 mg/Sodium Chloride 262.5 ml @ 250 mls/hr ONCE ONCE IV Last administered on 09/16/17at 16:14; Start 09/16/17 at 13:15; Stop 09/16/17 at 14: 17; Status DC A/P Assessment and Plan A/P 1. VDRF s/p intubation/ extubation keep on oxygen to keep O2 sat >90%- continue neb treatment. will consider pulmonary consult. 2. AMS/ Possible seizure disorder. continue Dilantin; level today is pending- neurology following. 3. Urinary tract infection; continue antibiotic. 4. history of schizophrenia; verify and resume home meds. 5.diabetes mellitus; accu-check with SSI DVT prophylaxis with subq Heparin. will continue to monitor in ICU. Britt Couch MD Sep 18, 2017 08:06
[2017-09-18] MEDS ORDERED: POTASSIUM CHLORIDE 20 MEQ CONTROLLED RELEASE TAB PO ONE (08:15)
[2017-09-18] MEDS: HEPARIN SODIUM - SQ 10,000 UNITS/ML VIAL SQ SCH ×2 (09:00→20:39)
[2017-09-18] MEDS: DOCUSATE SODIUM 50 MG/SENNA 8.6 MG TAB PO SCH ×2 (09:00→21:00)
[2017-09-18] MEDS: PHENYTOIN SODIUM 100 MG CAP PO SCH ×2 (09:18→20:59)
[2017-09-18] MEDS: FAMOTIDINE 20 MG/2 ML VIAL IV PUSH SCH (09:19)
[2017-09-18] MEDS ORDERED: ABIL20TA5 PO (15:30)
[2017-09-18] MEDS ORDERED: LEVO150T7 PO (15:30)
[2017-09-18] MEDS ORDERED: LISI10TA3 PO (15:31)
[2017-09-18] MEDS ORDERED: FENO145T2 PO (15:31)
--- NOTE | 2017-09-18 18:31 | MB ---
cc: Viktor Wadsworth MD DATE: 09/18/2017 HISTORY OF PRESENT ILLNESS: Ms. Calhoun is a 47-year-old white female who presented with a grand mal seizure. Her boyfriend found her with seizure activity, called 911 and she was transported to the ER. On presentation, she was critically ill, intubated, sedated and a CT brain scan was unremarkable. She was admitted by the optometric technologist. She was weaned and extubated earlier today. She is currently on 4-5 L of oxygen with O2 saturations in the low 90s. She says she is feeling much better, has no shortness of breath at rest at present. She is a smoker of a pack per day since she was 14, but has not previously been told she had asthma, COPD, chronic bronchitis, and has never had pneumonia. Initial chest x-rays were unremarkable. She did have a sputum culture from the endotracheal tube, grew normal reji. Blood cultures were also negative. She did have an E. coli urinary tract infection. PAST MEDICAL HISTORY: Depression, quite severe, on multiple therapies, diabetes, hypothyroidism. No prior history of seizure disorder. SOCIAL HISTORY: Lives with her boyfriend. Smoking noted. Denies significant alcohol use. She did have amphetamines in her urine, apparently for obesity treatment. Obesity is an issue. REVIEW OF SYSTEMS: She denies a chronic cough. She has never had hemoptysis. Normally not short of breath. No prior cardiovascular history. No chronic swelling in her legs. No history of thromboembolic disease. PHYSICAL EXAMINATION: GENERAL: Obese white female, very comfortable at rest. No obvious dyspnea. VITAL SIGNS: 99 degrees, pulse 90, blood pressure 160/80, respiration 18-22, O2 saturation currently 94% on 5 L. HEENT: Sclerae are anicteric. NECK: Veins are not distended. CHEST: Quite clear. Some minimal congestion at the bases. No wheezing. HEART: Regular rhythm. No harsh murmur. ABDOMEN: Obese, but soft. No calf tenderness. No peripheral edema and no clubbing. LABORATORY DATA: White count is 10,000. Arterial blood gas on CPAP yesterday pH 7.4, pCO2 of 40, pO2 of 77. DISCUSSION: Ms. Calhoun presented after a grand mal seizure, required short-term ventilation, now extubated, on O2. In light of the smoking history, probably does have some underlying chronic obstructive pulmonary disease. She is also obese, probably has some degree of basilar atelectasis with shunting. We talked about stopping smoking, which is important at this point. She has been on aerosol treatments. We will continue those. I do not think there is any indication for steroid therapy, and I do not see any evidence on x-ray or on exam of her having had significant aspiration leading to pneumonia. Further diagnostic and/or therapeutic intervention will depend on her ongoing clinical course. R. MD RUDY Cheung/JASPAL , 06:12 PM , 06:29 PM
[2017-09-18] MEDS ORDERED: FOSPHENYTOIN SODIUM 500 MG PE/10 ML VIAL IV ONE (19:30)
--- NOTE | 2017-09-18 19:32 | HHI.PR ---
Review/Management Diagnosis new onset GTC sz Plan change cerebyx to po dilantin give additional cerebyx 300 mg due to subtherapeutic phenytoin level and recheck level in am Diagnosis/Plan: Subjective Subjective Comments No acute events reported No headache No seizures Active Medications Current Medications Medications (Trade) Dose Ordered Sig/Meng Route Start Time Stop Time Status Last Admin (NS Flush) 2 ml UNSCH PRN IV FLUSH 09/16/17 11:30 (Duoneb Neb) 1 ampule Q6HR NEB INH 09/16/17 16:00 09/18/17 15:36 ([facility] [place] Nursing Information) 1 Q361D XX 09/16/17 13:45 09/16/17 13:45 (Chlorhexidine 2% Cloth) 3 pack Taper DAILY@04 TOP 09/17/17 04:00 09/13/18 03:59 09/17/17 05:53 (Chlorhexidine 2% Cloth) 3 pack UNSCH PRN TOP 09/16/17 13:45 (Caron-Colace) 1 tab BID PO 09/16/17 21:00 09/18/17 09:00 (Milk Of Magnesia Liq) 30 ml Q12H PRN PO 09/16/17 13:45 (Senokot) 17.2 mg Q12H PRN PO 09/16/17 13:45 (Dulcolax Supp) 10 mg DAILY PRN RECTAL 09/16/17 13:45 (Lactulose Liq) 30 ml DAILY PRN PO 09/16/17 13:45 (D50w (Vial) Inj) 50 ml UNSCH PRN IV PUSH 09/16/17 13:45 (Glucagon Inj) 1 mg UNSCH PRN OTHER 09/16/17 13:45 (NovoLIN R SUPPLEMENTAL SCALE) 1 Q4H SQ 09/16/17 13:45 09/16/17 14:36 (Synthroid) 50 mcg DAILY@0600 PO 09/17/17 06:00 09/18/17 05:45 Piperacillin Sod/ Tazobactam Sod 100 ml @ 200 mls/hr Q6H IV 09/16/17 14:00 09/18/17 14:00 (Ativan Inj) 1 mg Q4H PRN IV PUSH 09/16/17 14:30 09/17/17 01:00 (Heparin Inj) 5,000 units Q12HR SQ 09/17/17 21:00 09/18/17 09:00 (Dilantin) 200 mg BID PO 09/17/17 21:45 09/18/17 09:18 (Pepcid) 20 mg BID PO 09/18/17 21:00 (Cerebyx Inj) 300 mgpe ONCE ONCE IV 09/18/17 19:30 09/18/17 19:31 UNV Allergies Allergies Coded Allergies No Allergy Information Available (Unverified09/16/17) Exam I&O / VS 09/18/17 09/18/17 09/19/17 15:00 23:00 07:00 Output Total 650 ml Balance -650 ml Output Urine Total 650 ml Vital Signs Date Time Temp Pulse Resp B/P (MAP) Pulse Ox O2 Delivery O2 Flow Rate FiO2 09/18/17 18:00 98.1 97 24 170/95 (120) 94 09/18/17 18:00 91 09/18/17 17:00 94 6 153/91 (111) 96 09/18/17 16:00 96 26 158/89 (112) 95 09/18/17 16:00 91 09/18/17 15:00 95 26 148/83 (104) 94 09/18/17 14:01 97 26 146/80 (102) 96 09/18/17 14:00 97 1 96 09/18/17 14:00 91 09/18/17 13:00 99 29 178/84 (115) 88 09/18/17 12:00 98.0 93 25 160/93 (115) 94 09/18/17 12:00 91 09/18/17 11:00 97 22 158/81 (106) 94 09/18/17 10:00 91 09/18/17 10:00 97 22 160/93 (115) 95 09/18/17 09:01 91 Venturi Mask 6.00 50 09/18/17 09:00 96 19 148/75 (99) 90 09/18/17 08:00 92 26 155/92 (113) 92 09/18/17 08:00 91 09/18/17 06:00 91 09/18/17 04:00 92 09/18/17 04:00 99.6 92 42 163/84 (110) 91 09/18/17 02:00 90 09/18/17 01:49 91 Venturi Mask 6.00 50 09/18/17 00:00 99.6 90 19 126/79 (95) 93 09/18/17 00:00 90 09/17/17 22:00 91 09/17/17 21:05 93 Nasal Cannula 5.00 09/17/17 20:00 99.9 91 23 135/84 (101) 94 09/17/17 20:00 91 Exam Comments alert, oriented, speech normal Cn intact MOTOR--08/17 BUE Objective Micro and Labs Laboratory Tests Test 09/18/17 05:03 09/18/17 11:44 White Blood Count 10.2 Red Blood Count 4.29 Hemoglobin 12.4 Hematocrit 38.1 Mean Corpuscular Volume 88.9 Mean Corpuscular Hemoglobin 29.0 Mean Corpuscular Hemoglobin Concent 32.6 Red Cell Distribution Width 14.9 Platelet Count 213 Mean Platelet Volume 8.0 Neutrophils (%) (Auto) 78.1 Lymphocytes (%) (Auto) 16.3 Monocytes (%) (Auto) 4.3 Eosinophils (%) (Auto) 0.8 Basophils (%) (Auto) 0.5 Neutrophils # (Auto) 8.0 Lymphocytes # (Auto) 1.7 Monocytes # (Auto) 0.4 Eosinophils # (Auto) 0.1 Basophils # (Auto) 0.1 CBC Comment AUTO DIFF Differential Comment AUTO DIFF CONFIRMED Platelet Estimate NORMAL Platelet Morphology Comment NORMAL Blood Urea Nitrogen 6 Creatinine 0.60 Random Glucose 148 Calcium Level 7.5 Sodium Level 143 Potassium Level 3.4 Chloride Level 108 Carbon Dioxide Level 26.3 Anion Gap 9 Estimat Glomerular Filtration Rate 106 Phenytoin (Dilantin) Level 9.3 Date/Time Source Procedure Growth Status 09/16/17 13:15 Blood Peripheral Aerobic Blood Culture - Preliminary NO GROWTH IN 2 DAYS Resulted 09/16/17 13:15 Blood Peripheral Anaerobic Blood Culture - Preliminary NO GROWTH IN 2 DAYS Resulted 09/16/17 16:35 Sputum Endotracheal Gram Stain - Final Complete 09/16/17 16:35 Sputum Endotracheal Sputum Culture - Final HEAVY GROWTH NORMAL RESPIRATORY WOODY Complete 09/16/17 11:42 Urine Catheterized Urine Urine Culture - Final Escherichia Coli Complete Byron Ralph MD PhD Sep 18, 2017 19:32
[2017-09-18] MEDS ORDERED: LORazepam 0.5 MG TAB PO ONE (20:45)
[2017-09-18] MEDS: FAMOTIDINE 20 MG TAB PO SCH (20:59)
[2017-09-19] VITALS (31 sets, daily range): BP systolic 135–195; BP diastolic 71–118; PULSE 81–96; RESP 7–44; TEMP 98–98.8; O2SAT 94–97
[2017-09-19] MEDS: INSULIN NovoLIN REGULAR SUPPLEMENTAL SCALE SQ SCH ×6 (00:52→20:34)
[2017-09-19] MEDS: PIPERACIL-TAZO 4.5 GM PREMIX 100 ML IV SCH ×4 (03:12→20:20)
[2017-09-19] MEDS: RESP: ALBUTEROL 2.5 MG/IPRATROPIUM 0.5 MG NEB (SCH) INH ×4 (03:52→21:12)
[2017-09-19] MEDS: LEVOTHYROXINE SODIUM 50 MCG TAB PO SCH (05:57)
[2017-09-19] MEDS: CHLORHEXIDINE GLUCONATE 2 % 1 PACK (2 CLOTHS) TOP SCH (06:31)
[2017-09-19] MEDS: LEVOTHYROXINE SODIUM 150 MCG TAB PO SCH (06:31)
--- NOTE | 2017-09-19 07:50 | HHI.PR ---
Subjective Remarks in no acute distress. sob is improving. no fever. denies pain. d/w the RN and no acute issues over night. Objective Vitals Vital Signs Date Time Temp Pulse Resp B/P (MAP) Pulse Ox O2 Delivery O2 Flow Rate FiO2 09/19/17 06:00 89 09/19/17 04:00 98.0 85 18 167/91 (116) 97 09/19/17 04:00 81 09/19/17 02:26 90 42 156/85 (108) 96 09/19/17 02:00 85 09/19/17 02:00 90 26 195/98 (130) 97 09/19/17 01:30 92 25 97 09/19/17 01:01 92 25 170/88 (115) 97 09/19/17 01:00 92 24 96 09/19/17 00:30 96 26 95 09/19/17 00:00 98.2 94 23 177/87 (117) 97 09/19/17 00:00 92 09/19/17 00:00 94 23 177/87 (117) 97 09/18/17 23:30 97 23 97 09/18/17 23:01 98 29 157/77 (103) 96 09/18/17 23:00 97 28 97 09/18/17 22:30 97 22 90 09/18/17 22:04 96 30 174/86 (115) 95 09/18/17 22:01 96 28 165/116 (132) 96 09/18/17 22:00 96 25 95 09/18/17 22:00 91 09/18/17 21:30 97 25 95 09/18/17 21:00 98 24 171/95 (120) 93 09/18/17 20:41 98 27 161/83 (109) 96 09/18/17 20:32 95 Simple Mask 8.00 09/18/17 20:30 99 29 96 09/18/17 20:00 98.0 97 30 162/84 (110) 94 09/18/17 20:00 97 30 162/84 (110) 94 09/18/17 20:00 97 09/18/17 18:00 98.1 97 24 170/95 (120) 94 09/18/17 18:00 91 09/18/17 17:00 94 6 153/91 (111) 96 09/18/17 16:00 96 26 158/89 (112) 95 09/18/17 16:00 91 09/18/17 15:00 95 26 148/83 (104) 94 09/18/17 14:01 97 26 146/80 (102) 96 09/18/17 14:00 97 1 96 09/18/17 14:00 91 09/18/17 13:00 99 29 178/84 (115) 88 09/18/17 12:00 98.0 93 25 160/93 (115) 94 09/18/17 12:00 91 09/18/17 11:00 97 22 158/81 (106) 94 09/18/17 10:00 91 09/18/17 10:00 97 22 160/93 (115) 95 09/18/17 09:01 91 Venturi Mask 6.00 50 09/18/17 09:00 96 19 148/75 (99) 90 09/18/17 08:00 92 26 155/92 (113) 92 09/18/17 08:00 91 I/O 09/18/17 09/18/17 09/18/17 09/19/17 09/19/17 09/19/17 07:00 15:00 23:00 07:00 15:00 23:00 Intake Total 1069 ml 500 ml Output Total 450 ml 650 ml 1150 ml Balance 619 ml -650 ml -650 ml Intake Oral 500 ml IV Total 1069 ml Output Urine Total 450 ml 650 ml 1150 ml # Bowel Movements 0 0 Result Diagram: 09/18/17 0503 09/18/17 0503 Imaging Last Impressions Head CT 09/16/17 1116 Signed Impressions: CONCLUSION: Negative noncontrast head CT. Chest X-Ray 09/16/17 1116 Signed Impressions: CONCLUSION: Endotracheal tube needs to be repositioned. Nasogastric tube could be advanced slightly Brain MRI 09/16/17 0000 Signed Impressions: CONCLUSION: Negative MR Brain with and without contrast. Objective Remarks GENERAL: on oxygen mask CARDIOVASCULAR: Regular rate and regular rhythm without murmurs, gallops, or rubs. RESPIRATORY: Clear to auscultation. Breath sounds equal bilaterally. No wheezes , rales, or rhonchi. GASTROINTESTINAL: Abdomen soft, non-tender, nondistended. Normal, active bowel sounds MUSCULOSKELETAL: Extremities without clubbing, cyanosis, or edema. NEURO: Alert & Oriented x4 to person, place, time, situation. Moves all ext x4 Procedures intubation/extubation Medications and IVs Inpatient Medications Albuterol/ Ipratropium (Duoneb Neb) 1 ampule Q6HR NEB INH Last administered on 09/19/17at 03:52; Start 09/16/17 at 16:00 Aripiprazole (Abilify) 20 mg HS PO Last administered on 09/18/17at 20:59; Start 09/18/17 at 21:00 Azithromycin 500 mg/Sodium Chloride 250 ml @ 250 mls/hr ONCE ONCE IV Last administered on 09/16/17at 13:22; Start 09/16/17 at 13:15; Stop 09/16/17 at 14:14; Status DC Bisacodyl (Dulcolax Supp) 10 mg DAILY PRN RECTAL SEVERE CONSITIPATION; Start at 13:45 Bupropion HCl (Wellbutrin Sr 12 Hr) 200 mg BID PO ; Start 09/19/17 at 09:00 Cefepime HCl 1000 mg/Sodium Chloride 100 ml @ 200 mls/hr ONCE ONCE IV Last administered on 09/16/17at 14:27; Start 09/16/17 at 13:15; Stop 09/16/17 at 13:44; Status DC Chlorhexidine Gluconate (Chlorhexidine 2% Cloth) 3 pack UNSCH PRN TOP HYGIENIC CARE; Start 09/16/17 at 13:45 Dextrose (D50w (Vial) Inj) 50 ml UNSCH PRN IV PUSH HYPOGLYCEMIA-SEE COMMENTS; Start 09/16/17 at 13:45 Etomidate (Amidate Inj) 20 mg ONCE ONCE IV PUSH Last administered on 09/16/17at 11:46; Start 09/16/17 at 11:30; Stop 09/16/17 at 11:31; Status DC Famotidine (Pepcid Inj) 20 mg Q12HR IV PUSH Last administered on 09/18/17at 09:19 ; Start 09/16/17 at 13:45; Stop 09/18/17 at 14:06; Status DC Famotidine (Pepcid) 20 mg BID PO Last administered on 09/18/17at 20:59; Start 09/18/17 at 21:00 Fenofibrate (Tricor) 145 mg DAILY PO ; Start 09/19/17 at 09:00 Fluoxetine HCl (PROzac) 20 mg DAILY PO ; Start 09/19/17 at 09:00 Fosphenytoin Sodium (Cerebyx Inj) 300 mgpe ONCE ONCE IV Last administered on at 20:20; Start 09/18/17 at 19:30; Stop 09/18/17 at 19:32; Status DC Fosphenytoin Sodium 1000 mgpe/ Sodium Chloride 70 ml @ 280 mls/hr ONCE ONCE IV Last administered on 09/16/17at 14:26; Start 09/16/17 at 13:45; Stop 09/16/17 at 13:59; Status DC Fosphenytoin Sodium 500 mgpe/ Sodium Chloride 60 ml @ 240 mls/hr ONCE ONCE IV Last administered on 09/17/17at 23:35; Start 09/17/17 at 22:00; Stop 09/17/17 at 22:14; Status DC Glucagon (Glucagon Inj) 1 mg UNSCH PRN OTHER HYPOGLYCEMIA-SEE COMMENTS; Start 09/16/17 at 13:45 Heparin Sodium (Porcine) (Heparin Inj) 5,000 units Q12HR SQ Last administered on 09/18/17at 20:39; Start 09/17/17 at 21:00 Insulin Human Regular (NovoLIN R SUPPLEMENTAL SCALE) 1 Q4H SQ Last administered on 09/19/17at 06:32; Start 09/16/17 at 13:45 Lactulose (Lactulose Liq) 30 ml DAILY PRN PO SEVERE CONSITIPATION; Start at 13:45 Levetriacetam 100 ml @ 400 mls/hr BOLUS ONCE IV Last administered on at 12:16; Start 09/16/17 at 11:30; Stop 09/16/17 at 11:44; Status DC Levothyroxine Sodium (Synthroid) 150 mcg DAILY@0600 PO Last administered on 09/19at 06:31; Start 09/19/17 at 06:00 Lisinopril (Prinivil) 10 mg DAILY PO ; Start 09/19/17 at 09:00 Lorazepam (Ativan Inj) 1 mg Q4H PRN IV PUSH SEIZURES Last administered on at 01:00; Start 09/16/17 at 14:30 Lorazepam (Ativan) 0.5 mg ONCE ONCE PO Last administered on 09/18/17at 20:59; Start 09/18/17 at 20:45; Stop 09/18/17 at 20:46; Status DC Magnesium Hydroxide (Milk Of Magnesia Liq) 30 ml Q12H PRN PO Mild constipation ; Start 09/16/17 at 13:45 Miscellaneous Information ([facility] Nursing Information) 1 Q361D XX Last administered on 09/16/17at 13:45; Start 09/16/17 at 13:45 Phenytoin (Dilantin) 200 mg BID PO Last administered on 09/18/17at 20:59; Start 09/17/17 at 21:45 Piperacillin Sod/ Tazobactam Sod 100 ml @ 200 mls/hr Q6H IV Last administered on 09/19/17at 03:12; Start 09/16/17 at 14:00 Potassium Chloride (KCl) 20 meq ONCE ONCE PO Last administered on 09/18/17 09: 19; Start 09/18/17 at 08:15; Stop 09/18/17 at 08:16; Status DC Pravastatin Sodium (Pravachol) 20 mg DAILY PO ; Start 09/19/17 at 09:00 Propofol 100 ml @ 0 mls/hr TITRATE PRN IV SEDATION Last administered on at 05:54; Start 09/16/17 at 11:30; Stop 09/17/17 at 14:56; Status DC Senna/Docusate Sodium (Caron-Colace) 1 tab BID PO Last administered on 09/18/17at 21:00; Start 09/16/17 at 21:00 Sennosides (Senokot) 17.2 mg Q12H PRN PO Moderate constipation; Start 09/16/17 at 13:45 Sodium Chloride 1,000 ml @ 84 mls/hr [id number] IV Last administered on 09/17/17at 00:51; Start 09/16/17 at 13:45; Stop 09/17/17 at 14:56; Status DC Sodium Chloride (NS Flush) 2 ml UNSCH PRN IV FLUSH FLUSH AFTER USING IV ACCESS ; Start 09/16/17 at 11:30 Succinylcholine Chloride (Quelicin Inj) 100 mg ONCE ONCE IV PUSH Last administered on 09/16/17at 11:47; Start 09/16/17 at 11:30; Stop 09/16/17 at 11:31; Status DC Vancomycin HCl 1250 mg/Sodium Chloride 262.5 ml @ 250 mls/hr ONCE ONCE IV Last administered on 09/16/17at 16:14; Start 09/16/17 at 13:15; Stop 09/16/17 at 14: 17; Status DC A/P Assessment and Plan A/P 1. VDRF s/p intubation/ extubation keep on oxygen to keep O2 sat >90%-will try N/C today. continue neb treatment. pulmonary consult appreciated. 2. AMS/ Possible seizure disorder. continue Dilantin; dilantin level therapeutic.- neurology following. 3. Urinary tract infection; continue antibiotic; will switch to oral antibiotic tomorrow. 4. history of schizophrenia;psych consulted. 5.diabetes mellitus; accu-check with SSI DVT prophylaxis with subq Heparin. dc jett cath. consult PT. transfer to telemetry within the next 24 hrs if stable on N/C. d/w the Britt Chin MD Sep 19, 2017 07:50
[2017-09-19] MEDS: HEPARIN SODIUM - SQ 10,000 UNITS/ML VIAL SQ SCH ×2 (08:42→20:22)
[2017-09-19] MEDS: FAMOTIDINE 20 MG TAB PO SCH ×2 (08:42→20:34)
[2017-09-19] MEDS: DOCUSATE SODIUM 50 MG/SENNA 8.6 MG TAB PO SCH ×2 (08:43→20:22)
[2017-09-19] MEDS: FENOFIBRATE 145 MG TAB PO SCH (08:43)
[2017-09-19] MEDS: PRAVASTATIN SOD 20 MG TAB PO SCH (08:43)
[2017-09-19] MEDS: LISINOPRIL 10 MG TAB PO SCH (08:43)
[2017-09-19] MEDS: PHENYTOIN SODIUM 100 MG CAP PO SCH ×2 (08:43→20:22)
[2017-09-19] MEDS ORDERED: buPROPion HCL 100 MG SUSTAINED RELEASE TAB PO SCH (09:00)
[2017-09-19] MEDS ORDERED: LORazepam 0.5 MG TAB PO SCH (09:00)
[2017-09-19] MEDS ORDERED: FLUoxetine HCL 20 MG CAP PO SCH (09:00)
[2017-09-19] MEDS ORDERED: LORazepam 0.5 MG TAB PO PRN (09:00)
--- NOTE | 2017-09-19 14:43 | PD.PSY.CON ---
Provisional Diagnosis Admission Date Sep 16, 2017 at 13:40 [place] I. Schizoaffective disorder [place] II. Deferred [place] III. Diabetes, obesity, hypertension, seizures History of Present Illness Service Psychiatry Consult Requested By Critical care Reason for Consult [place] Primary Care Physician Unknown HPI The patient is a 47-year-old woman, domiciled in [facility] [place] with her boyfriend, unemployed at the moment, supported by [facility], with psychiatric history of schizoaffective disorder, anxiety, 2 previous psychiatric hospitalizations, suicide attempts, she has outpatient psychiatric care with Dr. Culver, she is on Wellbutrin 450 mg, Prozac 40 mg, Abilify 20 mg, with a history medical history of hypothyroidism, diabetes mellitus, hypertension, obesity, who presented to [facility] ED via EMS for altered mental status. Per ED records, EMS found the patient unresponsive and her boyfriend related a possible seizure- like activity. The patient has no history of any seizure disorder. In the ED, she was intubated with etomidate and succinylcholine and placed on full mechanical ventilation for airway protection. A CT scan of the brain was unremarkable. In the ED, she was given 1 gram of Keppra and 1 gram loading dose of Cerebyx. The patient was initially positive for amphetamines, even though she denies using drugs. She takes Wellbutrin which can give a false- positive amphetamines in U tox. EMR was reviewed. On psychiatric evaluation today the patient is found with her boyfriend and sister. Patient reports that she feels much better today. She says that yesterday she was quite confused, but today she feels a baseline. The patient is logical, coherent and relevant. She reports having a good mood. Denies symptoms of depression, denies anhedonia, denies hopelessness, denies helplessness, worthlessness, denies suicidal enemas ideation, she denies visual and auditory hallucinations. The patient reports that she has chronic auditory hallucination, she has intermittent kind of loud commanding type auditory hallucinations, but she has not had any voices in the last 24 hours. She also reports intermittent paranoia , which he denies paranoia at the moment. She is oriented 3, no attention deficit, no fluctuation of consciousness at the moment. her boyfriend and sister are able to confirm that the patient is a baseline, and doing actually very well. Patient reports good compliance of medications, no significant side effects, good response. Patient denies the use of illegal drugs, alcohol. I confronted the patient regarding her positive amphetamine test, but she denies the use of illicit drugs, just the prescribed. Review of Systems Constitutional: DENIES: Diaphoretic episodes, Fatigue, Fever, Weight gain, Weight loss, Chills, Dizziness, Change in appetite, Night Sweats Endocrine: DENIES: Abnorml menstrual pattern, Heat/cold intolerance, Polydipsia , Polyuria, Polyphagia Eyes: DENIES: Blurred vision, Diplopia, Eye inflammation, Eye pain, Vision loss , Photosensitivity, Double Vision Ears, nose, mouth, throat: DENIES: Tinnitus, Hearing loss, Vertigo, Nasal discharge, Oral lesions, Throat pain, Hoarseness, Ear Pain, Running Nose, Epistaxis, Sinus Pain, Toothache, Odynophagia Respiratory: DENIES: Apneas, Cough, Snoring, Wheezing, Hemoptysis, Sputum production, Shortness of breath Cardiovascular: DENIES: Chest pain, Palpitations, Syncope, Dyspnea on Exertion , PND, Lower Extremity Edema, Orthopnea, Claudication Gastrointestinal: DENIES: Abdominal pain, Black stools, Bloody stools, Constipation, Diarrhea, Nausea, Vomiting, Difficulty Swallowing, Anorexia Genitourinary: DENIES: Abnormal vaginal bleeding, Dysmenorrhea, Dyspareunia, Sexual dysfunction, Urinary frequency, Urinary incontinence, Urgency, Hematuria , Dysuria, Nocturia, Vaginal discharge Musculoskeletal: DENIES: Joint pain, Muscle aches, Stiffness, Joint Swelling, Back pain, Neck pain Integumentary: DENIES: Abnormal pigmentation, Pruritus, Rash, Nail changes, Breast masses, Breast skin changes, Nipple discharge Hematologic/lymphatic: DENIES: Bruising, Lymphadenopathy Immunologic/allergic: DENIES: Eczema, Urticaria Neurologic: DENIES: Abnormal gait, Headache, Localized weakness, Paresthesias, Seizures, Speech Problems, Tremor, Poor Balance Psychiatric: DENIES: Anxiety, Confusion, Mood changes, Depression, Hallucinations, Agitation, Suicidal Ideation, Homicidal Ideation, Delusions Past Family Social History Coded Allergies: No Allergy Information Available (Unverified , 09/16/17) Reported Medications Fenofibrate (Fenofibrate) 145 Mg Tab, 145 MG PO DAILY, #30 TAB 0 Refills 09/18/17 Lisinopril (Lisinopril) 10 Mg Tab, 10 MG PO DAILY, #30 TAB 0 Refills 09/18/17 Levothyroxine (Levothyroxine) 150 Mcg Tab, 150 MCG PO DAILY for Thyroid, #30 TAB 0 Refills 09/18/17 Aripiprazole (Abilify) 20 Mg Tab, 20 MG PO HS, #30 TAB 0 Refills 09/18/17 Lorazepam (Lorazepam) 0.5 Mg Tab, 0.5 MG PO TID, TAB 0 Refills 09/16/17 Metformin (Metformin) 500 Mg Tab, 500 MG PO BIDPC for Blood Sugar Management, # 60 TAB 0 Refills 09/16/17 Lovastatin (Lovastatin) 20 Mg Tab, 20 MG PO DAILY for Cholesterol Management, # 30 TAB 0 Refills 09/16/17 Bupropion HCl ER 24 HR (Bupropion HCl ER 24 HR) 300 Mg Tab, 450 MG PO DAILY for Control Depression, TAB 0 Refills 09/16/17 Fluoxetine (Fluoxetine) 40 Mg Cap, 20 CAP PO DAILY, #3 CAP 0 Refills 09/16/17 Current Medications Medications (Trade) Dose Ordered Sig/Meng Route Start Time Stop Time Status Last Admin (NS Flush) 2 ml UNSCH PRN IV FLUSH 09/16/17 11:30 (Duoneb Neb) 1 ampule Q6HR NEB INH 09/16/17 16:00 09/19/17 10:00 ([facility] [place] Nursing Information) 1 Q361D XX 09/16/17 13:45 09/16/17 13:45 (Chlorhexidine 2% Cloth) 3 pack Taper DAILY@04 TOP 09/17/17 04:00 09/13/18 03:59 09/19/17 06:31 (Chlorhexidine 2% Cloth) 3 pack UNSCH PRN TOP 09/16/17 13:45 (Caron-Colace) 1 tab BID PO 09/16/17 21:00 09/19/17 08:43 (Milk Of Magnesia Liq) 30 ml Q12H PRN PO 09/16/17 13:45 (Senokot) 17.2 mg Q12H PRN PO 09/16/17 13:45 (Dulcolax Supp) 10 mg DAILY PRN RECTAL 09/16/17 13:45 (Lactulose Liq) 30 ml DAILY PRN PO 09/16/17 13:45 (D50w (Vial) Inj) 50 ml UNSCH PRN IV PUSH 09/16/17 13:45 (Glucagon Inj) 1 mg UNSCH PRN OTHER 09/16/17 13:45 (NovoLIN R SUPPLEMENTAL SCALE) 1 Q4H SQ 09/16/17 13:45 09/19/17 14:11 (Synthroid) 50 mcg DAILY@0600 PO 09/17/17 06:00 09/18/17 05:45 Piperacillin Sod/ Tazobactam Sod 100 ml @ 200 mls/hr Q6H IV 09/16/17 14:00 09/19/17 14:11 (Ativan Inj) 1 mg Q4H PRN IV PUSH 09/16/17 14:30 09/17/17 01:00 (Heparin Inj) 5,000 units Q12HR SQ 09/17/17 21:00 09/19/17 08:42 (Dilantin) 200 mg BID PO 09/17/17 21:45 09/19/17 08:43 (Pepcid) 20 mg BID PO 09/18/17 21:00 09/19/17 08:42 (Abilify) 20 mg HS PO 09/18/17 21:00 09/18/17 20:59 (Wellbutrin Sr 12 Hr) 200 mg BID PO 09/19/17 09:00 09/19/17 09:32 (Tricor) 145 mg DAILY PO 09/19/17 09:00 09/19/17 08:43 (PROzac) 20 mg DAILY PO 09/19/17 09:00 09/19/17 08:42 (Synthroid) 150 mcg DAILY@0600 PO 09/19/17 06:00 09/19/17 06:31 (Prinivil) 10 mg DAILY PO 09/19/17 09:00 09/19/17 08:43 (Pravachol) 20 mg DAILY PO 09/19/17 09:00 09/19/17 08:43 (Ativan) 0.5 mg TID PRN PO 09/19/17 09:00 Family Psych History Her mother and her sister both have a schizophrenia Social History Patient was born and raised in [place], she lives in [place] [place] with her boyfriend , unemployed at the moment, supported by SSI, her highest level of education is a bachelor degree Patient's Strengths (min. 2) Outpatient psychiatric Physical Exam No psychomotor agitation retardation, no withdrawal symptoms, no EPS, Vital Signs Vital Signs Date Time Temp Pulse Resp B/P (MAP) Pulse Ox O2 Delivery O2 Flow Rate FiO2 09/19/17 12:00 85 09/19/17 12:00 98.1 19 157/104 (121) 97 09/19/17 07:53 Nasal Cannula 6.00 09/18/17 09:01 50 I/O 09/19/17 09/19/17 09/20/17 08:00 16:00 00:00 Intake Total 500 ml 100 ml Output Total 1150 ml Balance -650 ml 100 ml Lab Results Test 09/18/17 20:50 Phenytoin (Dilantin) Level 12.7 MCG/ML Date/Time Source Procedure Growth Status 09/16/17 13:15 Blood Peripheral Aerobic Blood Culture - Preliminary NO GROWTH IN 3 DAYS Resulted 09/16/17 13:15 Blood Peripheral Anaerobic Blood Culture - Preliminary NO GROWTH IN 3 DAYS Resulted 09/16/17 16:35 Sputum Endotracheal Gram Stain - Final Complete 09/16/17 16:35 Sputum Endotracheal Sputum Culture - Final HEAVY GROWTH NORMAL RESPIRATORY WOODY Complete 09/16/17 11:42 Urine Catheterized Urine Urine Culture - Final Escherichia Coli Complete Mental Status Examination Appearance: Appropriate Consciousness: Alert Orientation: x4 Motor Activity: Normal gait Speech: Unremarkable Language: Adequate Fund of Knowledge: Adequate Attention and Concentration: Adequate Memory: Unremarkable Mood: Appropriate Affect: Appropriate Thought Process & Associations: Intact Thought Content: Appropriate Hallucination Type: None Delusion Type: None Suicidal Ideation: No Suicidal Plan: No Suicidal Intention: No Homicidal Ideation: No Homicidal Plan: No Homicidal Intention: No Insight: Adequate Judgment: Adequate Assessment & Plan Problem List: (1) Schizoaffective disorder ICD Codes: F25.9 - Schizoaffective disorder, unspecified Assessment & Plan: On psychiatric evaluation today the patient is calm, cooperative, pleasant, logical, coherent and relevant. The patient denies symptomatology of depression, denies symptoms of anxiety, denies carina and psychosis. At this moment the patient denies suicidal enemas ideation, and she also denies visual and auditory hallucinations. Patient reports that she chronically hears episodic voices and have episodic paranoia, but she has not have any of these symptoms in the last 24 hours. He is oriented 3, without fluctuation of consciousness, no attention deficit, no gross cognitive impairment present. The patient seems to be quite insightful about her psychiatric condition and about the importance of keeping the compliance with psychotropics. She has an extensive history of schizoaffective disorder, with 2 previous psychiatric hospitalizations, previous suicidal attempts. Continue outpatient medication with the exception of Wellbutrin given his risk of decreasing seizure threshold. She denies the use of drugs, alcohol, U tox positive for amphetamines could be false positive of Wellbutrin. Continue Prozac 40 mg, Abilify 20 mg. Continue her psychiatric care as an outpatient with Dr. Culver. Discontinue the Wellbutrin completely given his diagnosis of potential seizures. Extensive support, motivation and psychoeducation provided. She does not meet criteria for involuntary psychiatric admission. Assessment & Plan Estimated LOS: Farrukh Bourne MD Sep 19, 2017 14:43
[2017-09-20] VITALS (14 sets, daily range): BP systolic 134–171; BP diastolic 76–101; PULSE 79–90; RESP 15–42; TEMP 97.7–98.9; O2SAT 90–96
[2017-09-20] MEDS: PIPERACIL-TAZO 4.5 GM PREMIX 100 ML IV SCH ×2 (01:41→07:56)
[2017-09-20] MEDS: CHLORHEXIDINE GLUCONATE 2 % 1 PACK (2 CLOTHS) TOP SCH (01:42)
[2017-09-20] MEDS: INSULIN NovoLIN REGULAR SUPPLEMENTAL SCALE SQ SCH ×6 (01:42→21:25)
[2017-09-20] MEDS: RESP: ALBUTEROL 2.5 MG/IPRATROPIUM 0.5 MG NEB (SCH) INH ×2 (02:49→08:58)
[2017-09-20] MEDS: LEVOTHYROXINE SODIUM 50 MCG TAB PO SCH (05:51)
[2017-09-20] MEDS: LEVOTHYROXINE SODIUM 150 MCG TAB PO SCH (05:51)
[2017-09-20 07:00] LABS: CALCIUM 8.4 MG/DL (8.5-10.1); CREATININE 0.53 MG/DL (0.50-1.00)
[2017-09-20] MEDS: PHENYTOIN SODIUM 100 MG CAP PO SCH ×2 (07:56→21:16)
[2017-09-20] MEDS: FAMOTIDINE 20 MG TAB PO SCH ×2 (07:57→21:17)
[2017-09-20] MEDS: FENOFIBRATE 145 MG TAB PO SCH (07:57)
[2017-09-20] MEDS: LISINOPRIL 10 MG TAB PO SCH (07:57)
[2017-09-20] MEDS: FLUoxetine HCL 20 MG CAP PO SCH (07:57)
[2017-09-20] MEDS: PRAVASTATIN SOD 20 MG TAB PO SCH (07:57)
[2017-09-20] MEDS: HEPARIN SODIUM - SQ 10,000 UNITS/ML VIAL SQ SCH ×2 (07:58→21:17)
[2017-09-20] MEDS: DOCUSATE SODIUM 50 MG/SENNA 8.6 MG TAB PO SCH ×2 (08:03→21:16)
--- NOTE | 2017-09-20 08:07 | HHI.PR ---
Subjective Remarks in no acute distress. feels and looks more comfortable. now on two liters of oxygen via N/C. no fever. d/w the RN and no acute issues over night. Objective Vitals Vital Signs Date Time Temp Pulse Resp B/P (MAP) Pulse Ox O2 Delivery O2 Flow Rate FiO2 09/20/17 06:00 79 18 149/87 (107) 92 09/20/17 06:00 79 09/20/17 05:00 80 20 145/76 (99) 90 09/20/17 04:01 85 42 153/101 (118) 95 09/20/17 04:00 83 09/20/17 04:00 98.9 83 22 95 09/20/17 03:00 85 17 159/83 (108) 94 09/20/17 02:00 86 09/20/17 02:00 85 21 161/88 (112) 94 09/20/17 01:00 87 19 171/85 (113) 95 09/20/17 00:00 87 09/20/17 00:00 98.6 86 15 165/95 (118) 96 09/19/17 23:00 88 20 135/93 (107) 96 09/19/17 22:00 92 09/19/17 22:00 92 22 146/74 (98) 96 09/19/17 21:13 96 Nasal Cannula 3.00 09/19/17 21:00 90 25 147/71 (96) 95 09/19/17 20:12 92 26 147/88 (107) 96 09/19/17 20:00 98.8 91 22 155/118 (130) 95 09/19/17 20:00 91 09/19/17 19:00 91 21 153/84 (107) 96 09/19/17 18:00 93 44 161/93 (115) 95 09/19/17 18:00 93 09/19/17 17:03 87 22 167/92 (117) 95 09/19/17 17:00 87 25 163/102 (122) 96 09/19/17 16:00 91 09/19/17 16:00 98.3 91 7 156/89 (111) 95 09/19/17 15:00 91 24 140/86 (104) 96 09/19/17 14:11 96 25 137/85 (102) 94 09/19/17 14:00 95 09/19/17 13:00 96 15 139/85 (103) 95 09/19/17 12:00 85 09/19/17 12:00 98.1 85 19 157/104 (121) 97 09/19/17 11:00 86 22 163/95 (117) 95 09/19/17 10:00 91 09/19/17 10:00 91 25 163/82 (109) 96 09/19/17 09:00 93 22 165/87 (113) 95 I/O 09/19/17 09/19/17 09/19/17 09/20/17 09/20/17 09/20/17 07:00 15:00 23:00 07:00 15:00 23:00 Intake Total 500 ml 100 ml 950 ml 240 ml Output Total 1150 ml 700 ml Balance -650 ml 100 ml 250 ml 240 ml Intake Oral 500 ml 750 ml 240 ml IV Total 100 ml 200 ml Output Urine Total 1150 ml 700 ml # Voids 1 # Bowel Movements 0 2 0 Result Diagram: 09/18/17 0503 09/20/17 0525 Imaging Last Impressions Head CT 09/16/17 1116 Signed Impressions: CONCLUSION: Negative noncontrast head CT. Chest X-Ray 09/16/17 1116 Signed Impressions: CONCLUSION: Endotracheal tube needs to be repositioned. Nasogastric tube could be advanced slightly Brain MRI 09/16/17 0000 Signed Impressions: CONCLUSION: Negative MR Brain with and without contrast. Objective Remarks GENERAL: on oxygen mask CARDIOVASCULAR: Regular rate and regular rhythm without murmurs, gallops, or rubs. RESPIRATORY: Clear to auscultation. Breath sounds equal bilaterally. No wheezes , rales, or rhonchi. GASTROINTESTINAL: Abdomen soft, non-tender, nondistended. Normal, active bowel sounds MUSCULOSKELETAL: Extremities without clubbing, cyanosis, or edema. NEURO: Alert & Oriented x4 to person, place, time, situation. Moves all ext x4 Procedures intubation/extubation Medications and IVs Inpatient Medications Albuterol/ Ipratropium (Duoneb Neb) 1 ampule Q6HR NEB INH Last administered on 09/20/17at 02:49; Start 09/16/17 at 16:00 Aripiprazole (Abilify) 20 mg HS PO Last administered on 09/19/17at 20:22; Start 09/18/17 at 21:00 Azithromycin 500 mg/Sodium Chloride 250 ml @ 250 mls/hr ONCE ONCE IV Last administered on 09/16/17at 13:22; Start 09/16/17 at 13:15; Stop 09/16/17 at 14:14; Status DC Bisacodyl (Dulcolax Supp) 10 mg DAILY PRN RECTAL SEVERE CONSITIPATION; Start at 13:45 Bupropion HCl (Wellbutrin Sr 12 Hr) 200 mg BID PO Last administered on at 09:32; Start 09/19/17 at 09:00; Stop 09/19/17 at 14:23; Status DC Cefepime HCl 1000 mg/Sodium Chloride 100 ml @ 200 mls/hr ONCE ONCE IV Last administered on 09/16/17at 14:27; Start 09/16/17 at 13:15; Stop 09/16/17 at 13:44; Status DC Chlorhexidine Gluconate (Chlorhexidine 2% Cloth) 3 pack UNSCH PRN TOP HYGIENIC CARE; Start 09/16/17 at 13:45 Dextrose (D50w (Vial) Inj) 50 ml UNSCH PRN IV PUSH HYPOGLYCEMIA-SEE COMMENTS; Start 09/16/17 at 13:45 Etomidate (Amidate Inj) 20 mg ONCE ONCE IV PUSH Last administered on 09/16/17at 11:46; Start 09/16/17 at 11:30; Stop 09/16/17 at 11:31; Status DC Famotidine (Pepcid Inj) 20 mg Q12HR IV PUSH Last administered on 09/18/17at 09:19 ; Start 09/16/17 at 13:45; Stop 09/18/17 at 14:06; Status DC Famotidine (Pepcid) 20 mg BID PO Last administered on 09/19/17at 20:34; Start 09/18/17 at 21:00 Fenofibrate (Tricor) 145 mg DAILY PO Last administered on 09/19/17at 08:43; Start 09/19/17 at 09:00 Fluoxetine HCl (PROzac) 10 mg DAILY PO ; Start 09/20/17 at 09:00 Fosphenytoin Sodium (Cerebyx Inj) 300 mgpe ONCE ONCE IV Last administered on at 20:20; Start 09/18/17 at 19:30; Stop 09/18/17 at 19:32; Status DC Fosphenytoin Sodium 1000 mgpe/ Sodium Chloride 70 ml @ 280 mls/hr ONCE ONCE IV Last administered on 09/16/17at 14:26; Start 09/16/17 at 13:45; Stop 09/16/17 at 13:59; Status DC Fosphenytoin Sodium 500 mgpe/ Sodium Chloride 60 ml @ 240 mls/hr ONCE ONCE IV Last administered on 09/17/17at 23:35; Start 09/17/17 at 22:00; Stop 09/17/17 at 22:14; Status DC Glucagon (Glucagon Inj) 1 mg UNSCH PRN OTHER HYPOGLYCEMIA-SEE COMMENTS; Start 09/16/17 at 13:45 Heparin Sodium (Porcine) (Heparin Inj) 5,000 units Q12HR SQ Last administered on 09/19/17at 20:22; Start 09/17/17 at 21:00 Insulin Human Regular (NovoLIN R SUPPLEMENTAL SCALE) 1 Q4H SQ Last administered on 09/19/17at 20:34; Start 09/16/17 at 13:45 Lactulose (Lactulose Liq) 30 ml DAILY PRN PO SEVERE CONSITIPATION; Start at 13:45 Levetriacetam 100 ml @ 400 mls/hr BOLUS ONCE IV Last administered on 12:16; Start 09/16/17 at 11:30; Stop 09/16/17 at 11:44; Status DC Levothyroxine Sodium (Synthroid) 150 mcg DAILY@0600 PO Last administered on 09/20at 05:51; Start 09/19/17 at 06:00 Lisinopril (Prinivil) 10 mg DAILY PO Last administered on 09/19/17at 08:43; Start 09/19/17 at 09:00 Lorazepam (Ativan Inj) 1 mg Q4H PRN IV PUSH SEIZURES Last administered on 01:00; Start 09/16/17 at 14:30 Lorazepam (Ativan) 0.5 mg ONCE ONCE PO Last administered on 09/18/17at 20:59; Start 09/18/17 at 20:45; Stop 09/18/17 at 20:46; Status DC Magnesium Hydroxide (Milk Of Magnesia Liq) 30 ml Q12H PRN PO Mild constipation ; Start 09/16/17 at 13:45 Miscellaneous Information ([facility] [place] 1 Q361D XX Last administered on 09/16/17at 13:45; Start 09/16/17 at 13:45 Phenytoin (Dilantin) 200 mg BID PO Last administered on 09/19/17at 20:22; Start 09/17/17 at 21:45 Piperacillin Sod/ Tazobactam Sod 100 ml @ 200 mls/hr Q6H IV Last administered on 09/20/17at 01:41; Start 09/16/17 at 14:00 Potassium Chloride (KCl) 20 meq ONCE ONCE PO Last administered on 09/18/17 09: 19; Start 09/18/17 at 08:15; Stop 09/18/17 at 08:16; Status DC Pravastatin Sodium (Pravachol) 20 mg DAILY PO Last administered on 09/19/17at 08: 43; Start 09/19/17 at 09:00 Propofol 100 ml @ 0 mls/hr TITRATE PRN IV SEDATION Last administered on at 05:54; Start 09/16/17 at 11:30; Stop 09/17/17 at 14:56; Status DC Senna/Docusate Sodium (Caron-Colace) 1 tab BID PO Last administered on 09/19/17at 08:43; Start 09/16/17 at 21:00 Sennosides (Senokot) 17.2 mg Q12H PRN PO Moderate constipation; Start 09/16/17 at 13:45 Sodium Chloride 1,000 ml @ 84 mls/hr [id number] IV Last administered on 09/17/17at 00:51; Start 09/16/17 at 13:45; Stop 09/17/17 at 14:56; Status DC Sodium Chloride (NS Flush) 2 ml UNSCH PRN IV FLUSH FLUSH AFTER USING IV ACCESS ; Start 09/16/17 at 11:30 Succinylcholine Chloride (Quelicin Inj) 100 mg ONCE ONCE IV PUSH Last administered on 09/16/17at 11:47; Start 09/16/17 at 11:30; Stop 09/16/17 at 11:31; Status DC Vancomycin HCl 1250 mg/Sodium Chloride 262.5 ml @ 250 mls/hr ONCE ONCE IV Last administered on 09/16/17at 16:14; Start 09/16/17 at 13:15; Stop 09/16/17 at 14: 17; Status DC A/P Assessment and Plan A/P 1. VDRF s/p intubation/ extubation keep on oxygen to keep O2 sat >90%-now stable on N/C @ 2 lit/min. continue neb treatment. pulmonary consult appreciated. needs walk test before discharge. 2. AMS/ Possible seizure disorder- mentation has much improved. continue Dilantin; dilantin level therapeutic.- neurology following. 3. Urinary tract infection; continue antibiotic; will switch to oral antibiotic . 4. history of schizophrenia;psych consult appreciated; continue Prozac- will dc Wellbutrin due to seizure. 5.diabetes mellitus; accu-check with SSI 6.hypokalemia; will replace and monitor. DVT prophylaxis with subq Heparin. consulted PT. transfer to telemetry . d/w the RN. Discharge Planning dc planning within the next 48 hrs if stable. case management for HHC. walk test before discharge. Britt Couch MD Sep 20, 2017 08:07
--- NOTE | 2017-09-20 08:09 | HHI.FF ---
Face to Face Verification Diagnosis: (1) Respiratory failure Physical Therapy Order: Evaluate and Treat Home Health Nursing Order: Medical education Signs/symptoms of disease process Medication education-adverse effect Nursing assessment with vital signs I have seen patient Katie Calhoun on 09/20/17. My clinical findings support the need for the requested home health care services because: Ltd mobility - disease progression Patient has SOB I certify that my clinical findings support that this patient is homebound because: Hx COPD- exertion dyspnea/weakness Britt Couch MD Sep 20, 2017 08:09
[2017-09-20] MEDS ORDERED: POTASSIUM CHLORIDE 10 MEQ CONTROLLED RELEASE TAB PO ONE (08:15)
[2017-09-20] MEDS: FLUoxetine HCL 10 MG CAP PO SCH (08:41)
[2017-09-20] MEDS: CIPROFLOXACIN 500 MG TAB PO SCH ×2 (09:14→21:17)
[2017-09-20] MEDS ORDERED: POTASSIUM CHLORIDE 20 MEQ CONTROLLED RELEASE TAB PO ONE (12:00)
--- NOTE | 2017-09-20 12:35 | HHI.PYPN ---
Subjective Remarks Patient was seen today for psychiatric reevaluation along with medical student Quyen. The patient was accompanied with her sister. She was awake, alert, calm , cooperative, logical coherent and relevant. The patient reports that she has been feeling much better, she reports good mood, good sleep, good level of appetite and energy. Explained to the patient the reason I decided to discontinue Wellbutrin, patient expressed understanding and agreement. Patient will continue her psychiatric care with outpatient psychiatrist. She is oriented 3, no attention deficit, no fluctuation of consciousness. Compliant medications, no significant side effects. Review of Systems Constitutional: DENIES: Diaphoretic episodes, Fatigue, Fever, Weight gain, Weight loss, Chills, Dizziness, Change in appetite, Night Sweats Endocrine: DENIES: Abnorml menstrual pattern, Heat/cold intolerance, Polydipsia , Polyuria, Polyphagia Eyes: DENIES: Blurred vision, Diplopia, Eye inflammation, Eye pain, Vision loss , Photosensitivity, Double Vision Ears, nose, mouth, throat: DENIES: Tinnitus, Hearing loss, Vertigo, Nasal discharge, Oral lesions, Throat pain, Hoarseness, Ear Pain, Running Nose, Epistaxis, Sinus Pain, Toothache, Odynophagia Respiratory: DENIES: Apneas, Cough, Snoring, Wheezing, Hemoptysis, Sputum production, Shortness of breath Cardiovascular: DENIES: Chest pain, Palpitations, Syncope, Dyspnea on Exertion , PND, Lower Extremity Edema, Orthopnea, Claudication Gastrointestinal: DENIES: Abdominal pain, Black stools, Bloody stools, Constipation, Diarrhea, Nausea, Vomiting, Difficulty Swallowing, Anorexia Genitourinary: DENIES: Abnormal vaginal bleeding, Dysmenorrhea, Dyspareunia, Sexual dysfunction, Urinary frequency, Urinary incontinence, Urgency, Hematuria , Dysuria, Nocturia, Vaginal discharge Musculoskeletal: DENIES: Joint pain, Muscle aches, Stiffness, Joint Swelling, Back pain, Neck pain Integumentary: DENIES: Abnormal pigmentation, Pruritus, Rash, Nail changes, Breast masses, Breast skin changes, Nipple discharge Hematologic/lymphatic: DENIES: Bruising, Lymphadenopathy Immunologic/allergic: DENIES: Eczema, Urticaria Neurologic: DENIES: Abnormal gait, Headache, Localized weakness, Paresthesias, Seizures, Speech Problems, Tremor, Poor Balance Psychiatric: DENIES: Anxiety, Confusion, Mood changes, Depression, Hallucinations, Agitation, Suicidal Ideation, Homicidal Ideation, Delusions Mental Status Examination Appearance: Appropriate Consciousness: Alert Orientation: x4 Motor Activity: Normal gait Speech: Unremarkable Language: Adequate Fund of Knowledge: Adequate Attention and Concentration: Adequate Memory: Unremarkable Mood: Appropriate Affect: Appropriate Thought Process & Associations: Intact Thought Content: Appropriate Hallucination Type: None Delusion Type: None Suicidal Ideation: No Suicidal Plan: No Suicidal Intention: No Homicidal Ideation: No Homicidal Plan: No Homicidal Intention: No Insight: Adequate Judgment: Adequate Results Labs Test 09/20/17 05:25 Blood Urea Nitrogen 9 MG/DL Creatinine 0.53 MG/DL Random Glucose 118 MG/DL Calcium Level 8.4 MG/DL Sodium Level 143 MEQ/L Potassium Level 3.2 MEQ/L Chloride Level 107 MEQ/L Carbon Dioxide Level 27.0 MEQ/L Anion Gap 9 MEQ/L Estimat Glomerular Filtration Rate 123 ML/MIN Date/Time Source Procedure Growth Status 09/16/17 13:15 Blood Peripheral Aerobic Blood Culture - Preliminary NO GROWTH IN 4 DAYS Resulted 09/16/17 13:15 Blood Peripheral Anaerobic Blood Culture - Preliminary NO GROWTH IN 4 DAYS Resulted 09/16/17 16:35 Sputum Endotracheal Gram Stain - Final Complete 09/16/17 16:35 Sputum Endotracheal Sputum Culture - Final HEAVY GROWTH NORMAL RESPIRATORY WOODY Complete 09/16/17 11:42 Urine Catheterized Urine Urine Culture - Final Escherichia Coli Complete Vitals/IOs Vital Signs Date Time Temp Pulse Resp B/P (MAP) Pulse Ox O2 Delivery O2 Flow Rate FiO2 09/20/17 12:00 84 09/20/17 12:00 98.0 16 153/81 (105) 93 09/20/17 08:57 Nasal Cannula 3.00 09/18/17 09:01 50 Intake and Output 09/20/17 09/20/17 09/20/17 07:59 15:59 23:59 Intake Total 240 ml 100 ml Balance 240 ml 100 ml Assessment & Plan Problem List: (1) Schizoaffective disorder ICD Codes: F25.9 - Schizoaffective disorder, unspecified Assessment & Plan: Continue current psychotropic regimen, no psychiatric admission indicated. Will continue psychiatric care as an outpatient. Brief supportive psychotherapy and psychoeducation provided. Assessment & Plan Estimated LOS: days Justification for Cont. Inpt. No admission indicated Farrukh Wheeler MD Sep 20, 2017 12:35
[2017-09-21] VITALS: BP 125/74; PULSE 65; RESP 17; TEMP 98.1; O2SAT 95
[2017-09-21] MEDS: INSULIN NovoLIN REGULAR SUPPLEMENTAL SCALE SQ SCH ×6 (02:19→21:20)
[2017-09-21] MEDS: CHLORHEXIDINE GLUCONATE 2 % 1 PACK (2 CLOTHS) TOP SCH (02:19)
[2017-09-21 04:00] VITALS: BP 149/83; PULSE 75; RESP 18; TEMP 97.7; O2SAT 97
[2017-09-21] MEDS: LEVOTHYROXINE SODIUM 150 MCG TAB PO SCH (06:08)
[2017-09-21] MEDS: LEVOTHYROXINE SODIUM 50 MCG TAB PO SCH (06:08)
[2017-09-21 08:00] VITALS: BP 111/55; PULSE 76; RESP 20; TEMP 97.9; O2SAT 92
[2017-09-21] MEDS: PHENYTOIN SODIUM 100 MG CAP PO SCH ×2 (08:57→21:03)
[2017-09-21] MEDS: FLUoxetine HCL 20 MG CAP PO SCH (08:57)
[2017-09-21] MEDS: FLUoxetine HCL 10 MG CAP PO SCH (08:58)
[2017-09-21] MEDS: FAMOTIDINE 20 MG TAB PO SCH ×2 (08:58→21:02)
[2017-09-21] MEDS: FENOFIBRATE 145 MG TAB PO SCH (08:58)
[2017-09-21] MEDS: DOCUSATE SODIUM 50 MG/SENNA 8.6 MG TAB PO SCH ×2 (08:58→21:02)
[2017-09-21] MEDS: LISINOPRIL 10 MG TAB PO SCH (08:59)
[2017-09-21] MEDS: CIPROFLOXACIN 500 MG TAB PO SCH ×2 (08:59→21:02)
[2017-09-21] MEDS: PRAVASTATIN SOD 20 MG TAB PO SCH (08:59)
[2017-09-21] MEDS: HEPARIN SODIUM - SQ 10,000 UNITS/ML VIAL SQ SCH ×2 (09:00→21:02)
--- NOTE | 2017-09-21 11:12 | HHI.PR ---
Subjective Remarks in no acute distress. looks and feels more comfortable. now on two liters of oxygen via N/C. Objective Vitals Vital Signs Date Time Temp Pulse Resp B/P (MAP) Pulse Ox O2 Delivery O2 Flow Rate FiO2 09/21/17 08:00 97.9 76 20 111/55 (73) 92 09/21/17 04:00 97.7 75 18 149/83 (105) 97 09/21/17 00:00 98.1 65 17 125/74 (91) 95 09/20/17 20:00 97.7 90 19 152/93 (112) 93 09/20/17 17:00 98.7 85 18 134/81 (98) 96 09/20/17 16:00 90 09/20/17 16:00 98.0 90 16 157/77 (103) 96 09/20/17 12:00 84 09/20/17 12:00 98.0 84 16 153/81 (105) 93 I/O 09/20/17 09/20/17 09/20/17 09/21/17 09/21/17 09/21/17 07:00 15:00 23:00 07:00 15:00 23:00 Intake Total 240 ml 100 ml 750 ml Output Total 201 ml Balance 240 ml 100 ml 549 ml Intake Oral 240 ml 750 ml IV Total 100 ml Output Urine Total 200 ml Stool Total 1 ml # Voids 1 # Bowel Movements 0 Result Diagram: 09/18/17 0503 09/21/17 0530 Imaging Last Impressions Head CT 09/16/17 1116 Signed Impressions: CONCLUSION: Negative noncontrast head CT. Chest X-Ray 09/16/17 1116 Signed Impressions: CONCLUSION: Endotracheal tube needs to be repositioned. Nasogastric tube could be advanced slightly Brain MRI 09/16/17 0000 Signed Impressions: CONCLUSION: Negative MR Brain with and without contrast. Objective Remarks GENERAL: on oxygen mask CARDIOVASCULAR: Regular rate and regular rhythm without murmurs, gallops, or rubs. RESPIRATORY: Clear to auscultation. Breath sounds equal bilaterally. No wheezes , rales, or rhonchi. GASTROINTESTINAL: Abdomen soft, non-tender, nondistended. Normal, active bowel sounds MUSCULOSKELETAL: Extremities without clubbing, cyanosis, or edema. NEURO: Alert & Oriented x4 to person, place, time, situation. Moves all ext x4 Procedures intubation/extubation Medications and IVs Inpatient Medications Albuterol/ Ipratropium (Duoneb Neb) 1 ampule Q6HR NEB INH Last administered on 09/20/17at 08:58; Start 09/16/17 at 16:00; Stop 09/20/17 at 15:59; Status DC Aripiprazole (Abilify) 20 mg HS PO Last administered on 09/20/17at 21:16; Start 09/18/17 at 21:00 Azithromycin 500 mg/Sodium Chloride 250 ml @ 250 mls/hr ONCE ONCE IV Last administered on 09/16/17at 13:22; Start 09/16/17 at 13:15; Stop 09/16/17 at 14:14; Status DC Bisacodyl (Dulcolax Supp) 10 mg DAILY PRN RECTAL SEVERE CONSITIPATION; Start at 13:45 Bupropion HCl (Wellbutrin Sr 12 Hr) 200 mg BID PO Last administered on at 09:32; Start 09/19/17 at 09:00; Stop 09/19/17 at 14:23; Status DC Cefepime HCl 1000 mg/Sodium Chloride 100 ml @ 200 mls/hr ONCE ONCE IV Last administered on 09/16/17at 14:27; Start 09/16/17 at 13:15; Stop 09/16/17 at 13:44; Status DC Chlorhexidine Gluconate (Chlorhexidine 2% Cloth) 3 pack UNSCH PRN TOP HYGIENIC CARE; Start 09/16/17 at 13:45 Ciprofloxacin (Cipro) 500 mg Q12HR PO Last administered on 09/21/17at 08:59; Start 09/20/17 at 09:00 Dextrose (D50w (Vial) Inj) 50 ml UNSCH PRN IV PUSH HYPOGLYCEMIA-SEE COMMENTS; Start 09/16/17 at 13:45 Etomidate (Amidate Inj) 20 mg ONCE ONCE IV PUSH Last administered on 09/16/17at 11:46; Start 09/16/17 at 11:30; Stop 09/16/17 at 11:31; Status DC Famotidine (Pepcid Inj) 20 mg Q12HR IV PUSH Last administered on 09/18/17at 09:19 ; Start 09/16/17 at 13:45; Stop 09/18/17 at 14:06; Status DC Famotidine (Pepcid) 20 mg BID PO Last administered on 09/21/17at 08:58; Start 09/18/17 at 21:00 Fenofibrate (Tricor) 145 mg DAILY PO Last administered on 09/21/17at 08:58; Start 09/19/17 at 09:00 Fluoxetine HCl (PROzac) 10 mg DAILY PO Last administered on 09/21/17at 08:58; Start 09/20/17 at 09:00 Fosphenytoin Sodium (Cerebyx Inj) 300 mgpe ONCE ONCE IV Last administered on at 20:20; Start 09/18/17 at 19:30; Stop 09/18/17 at 19:32; Status DC Fosphenytoin Sodium 1000 mgpe/ Sodium Chloride 70 ml @ 280 mls/hr ONCE ONCE IV Last administered on 09/16/17at 14:26; Start 09/16/17 at 13:45; Stop 09/16/17 at 13:59; Status DC Fosphenytoin Sodium 500 mgpe/ Sodium Chloride 60 ml @ 240 mls/hr ONCE ONCE IV Last administered on 09/17/17at 23:35; Start 09/17/17 at 22:00; Stop 09/17/17 at 22:14; Status DC Glucagon (Glucagon Inj) 1 mg UNSCH PRN OTHER HYPOGLYCEMIA-SEE COMMENTS; Start 09/16/17 at 13:45 Heparin Sodium (Porcine) (Heparin Inj) 5,000 units Q12HR SQ Last administered on 09/21/17at 09:00; Start 09/17/17 at 21:00 Insulin Human Regular (NovoLIN R SUPPLEMENTAL SCALE) 1 Q4H SQ Last administered on 09/21/17at 09:12; Start 09/16/17 at 13:45 Lactulose (Lactulose Liq) 30 ml DAILY PRN PO SEVERE CONSITIPATION; Start at 13:45 Levetriacetam 100 ml @ 400 mls/hr BOLUS ONCE IV Last administered on at 12:16; Start 09/16/17 at 11:30; Stop 09/16/17 at 11:44; Status DC Levothyroxine Sodium (Synthroid) 150 mcg DAILY@0600 PO Last administered on 09/21at 06:08; Start 09/19/17 at 06:00 Lisinopril (Prinivil) 10 mg DAILY PO Last administered on 09/21/17 08:59; Start 09/19/17 at 09:00 Lorazepam (Ativan Inj) 1 mg Q4H PRN IV PUSH SEIZURES Last administered on 01:00; Start 09/16/17 at 14:30 Lorazepam (Ativan) 0.5 mg ONCE ONCE PO Last administered on 09/18/17 20:59; Start 09/18/17 at 20:45; Stop 09/18/17 at 20:46; Status DC Magnesium Hydroxide (Milk Of Magnesia Liq) 30 ml Q12H PRN PO Mild constipation ; Start 09/16/17 at 13:45 Miscellaneous Information ([facility] [place] [facility] [place]) 1 Q361D XX Last administered on 09/16/17 13:45; Start 09/16/17 at 13:45 Phenytoin (Dilantin) 200 mg BID PO Last administered on 09/21/17 08:57; Start 09/17/17 at 21:45 Piperacillin Sod/ Tazobactam Sod 100 ml @ 200 mls/hr Q6H IV Last administered on 09/20/17 07:56; Start 09/16/17 at 14:00; Stop 09/20/17 at 08:09; Status DC Potassium Chloride (KCl) 20 meq ONCE ONCE PO Last administered on 09/20/17 11: 48; Start 09/20/17 at 12:00; Stop 09/20/17 at 12:01; Status DC Pravastatin Sodium (Pravachol) 20 mg DAILY PO Last administered on 09/21/17 08: 59; Start 09/19/17 at 09:00 Propofol 100 ml @ 0 mls/hr TITRATE PRN IV SEDATION Last administered on 05:54; Start 09/16/17 at 11:30; Stop 09/17/17 at 14:56; Status DC Senna/Docusate Sodium (Caron-Colace) 1 tab BID PO Last administered on 09/20/17 21:16; Start 09/16/17 at 21:00 Sennosides (Senokot) 17.2 mg Q12H PRN PO Moderate constipation; Start 09/16/17 at 13:45 Sodium Chloride 1,000 ml @ 84 mls/hr [id number] IV Last administered on 09/17/17at 00:51; Start 09/16/17 at 13:45; Stop 09/17/17 at 14:56; Status DC Sodium Chloride (NS Flush) 2 ml UNSCH PRN IV FLUSH FLUSH AFTER USING IV ACCESS Last administered on 09/20/17at 07:58; Start 09/16/17 at 11:30 Succinylcholine Chloride (Quelicin Inj) 100 mg ONCE ONCE IV PUSH Last administered on 09/16/17at 11:47; Start 09/16/17 at 11:30; Stop 09/16/17 at 11:31; Status DC Vancomycin HCl 1250 mg/Sodium Chloride 262.5 ml @ 250 mls/hr ONCE ONCE IV Last administered on 09/16/17at 16:14; Start 09/16/17 at 13:15; Stop 09/16/17 at 14: 17; Status DC A/P Assessment and Plan A/P 1. VDRF s/p intubation/ extubation keep on oxygen to keep O2 sat >90%-now stable on N/C @ 2 lit/min. continue neb treatment. pulmonary consult appreciated. walk test today. 2. AMS/ Possible seizure disorder- mentation has much improved. continue Dilantin; dilantin level therapeutic.- neurology following. 3. Urinary tract infection; continue antibiotic. 4. history of schizophrenia;psych consult appreciated; continue Prozac- dc'ed Wellbutrin due to seizure. 5.diabetes mellitus; accu-check with SSI 6.hypokalemia; will replace and monitor. DVT prophylaxis with subq Heparin. consulted PT. Discharge Planning dc planning possibly tomorrow if remains stable- case management for HHC. walk test today. Britt Couch MD Sep 21, 2017 11:12
[2017-09-21] MEDS ORDERED: FLUO20CA12 PO (11:15)
[2017-09-21] MEDS ORDERED: POTASSIUM CHLORIDE 10 MEQ CONTROLLED RELEASE TAB PO ONE (11:15)
[2017-09-21] MEDS ORDERED: DILA100C PO (11:15)
[2017-09-21 11:52] VITALS: BP 118/72; PULSE 72; RESP 20; TEMP 97.5; O2SAT 96
--- NOTE | 2017-09-21 13:17 | HHI.PR ---
Subjective Remarks ALERT NO SOB Objective Vital Signs Date Time Temp Pulse Resp B/P (MAP) Pulse Ox O2 Delivery O2 Flow Rate FiO2 09/21/17 11:52 97.5 72 20 118/72 (87) 96 09/21/17 08:00 97.9 76 20 111/55 (73) 92 09/21/17 04:00 97.7 75 18 149/83 (105) 97 09/21/17 00:00 98.1 65 17 125/74 (91) 95 09/20/17 20:00 97.7 90 19 152/93 (112) 93 09/20/17 17:00 98.7 85 18 134/81 (98) 96 09/20/17 16:00 90 09/20/17 16:00 98.0 90 16 157/77 (103) 96 I/O 09/20/17 09/20/17 09/20/17 09/21/17 09/21/17 09/21/17 07:00 15:00 23:00 07:00 15:00 23:00 Intake Total 240 ml 100 ml 750 ml Output Total 201 ml Balance 240 ml 100 ml 549 ml Intake Oral 240 ml 750 ml IV Total 100 ml Output Urine Total 200 ml Stool Total 1 ml # Voids 1 # Bowel Movements 0 Result Diagram: 09/18/17 0503 09/21/17 0530 Objective Remarks GENERAL: SKIN: Warm and dry. HEAD: Atraumatic. Normocephalic. EYES: Pupils equal and round. No scleral icterus. No injection or drainage. ENT: No nasal bleeding or discharge. Mucous membranes pink and moist. NECK: Trachea midline. No JVD. CARDIOVASCULAR: Regular rate and rhythm. RESPIRATORY: No accessory muscle use. Clear to auscultation. Breath sounds equal bilaterally. GASTROINTESTINAL: Abdomen soft, non-tender, nondistended. Hepatic and splenic margins not palpable. MUSCULOSKELETAL: Extremities without clubbing, cyanosis, or edema. No obvious deformities. NEUROLOGICAL: Awake and alert. No obvious cranial nerve deficits. Motor grossly within normal limits. Five out of 5 muscle strength in the arms and legs. Normal speech. PSYCHIATRIC: Appropriate mood and affect; insight and judgment normal. Assessment and Plan Assessment and Plan RESPIRATORY FAILURE, RESOLVED TOBACCO USE ? COPD OBESITY ? CLAU SEIZURE DISORDER PLAN INCREASE ACTIVITY NPSG POST D/C Claudia Taylor MD Sep 21, 2017 13:17
[2017-09-21 15:57] VITALS: BP 139/82; PULSE 79; RESP 20; TEMP 99; O2SAT 97
[2017-09-21 19:50] VITALS: BP 161/88; PULSE 82; RESP 20; TEMP 98.1; O2SAT 94
--- NOTE | 2017-09-21 21:56 | ECHRPT ---
Indication: LV function CONCLUSIONS The left ventricular systolic function is low normal with an estimated ejection fraction in the rang e of 50- 55%. Mild concentric left ventricular hypertrophy. Normal left ventricular size. The left atrial size is [id number] dilated. Mild mitral valve regurgitation. Trivial pulmonary valve regurgitation. BP: / HR: Rhythm: Sinus MEASUREMENTS (Male / Female) Normal Values Technical Quality:Fair 2D ECHO LV Diastolic Diameter PLAX 5.2 cm 4.2 - 5.9 / 3.9 - 5.3 cm LV Systolic Diameter PLAX 3.9 cm IVS Diastolic Thickness 1.1 cm 0.6 - 1.0 / 0.6 - 0.9 cm LVPW Diastolic Thickness 1.0 cm 0.6 - 1.0 / 0.6 - 0.9 cm LV Relative Wall Thickness 0.4 RV Internal Dim ED PLAX 3.2 cm LVOT Diameter 2.1 cm LA Systolic Diameter LX 4.2 cm 3.0 - 4.0 / 2.7 - 3.8 cm M-MODE Aortic Root Diameter MM 3.9 cm LA Systolic Diameter MM 4.3 cm LA Ao Ratio MM 1.1 AV Cusp Separation MM 2.3 cm DOPPLER AV Peak Velocity 124.0 cm/s AV Peak Gradient 6.2 mmHg LVOT Peak Velocity 103.0 cm/s LVOT Peak Gradient 4.2 mmHg AV Area Cont Eq pk 2.9 cm MV Area PHT 5.5 cm Mitral E Point Velocity 96.3 cm/s Mitral A Point Velocity 55.8 cm/s Mitral E to A Ratio 1.7 LV E' Lateral Velocity 10.4 cm/s Mitral E to LV E' Lateral Ratio 9.3 LV E' Septal Velocity 8.8 cm/s Mitral E to LV E' Septal Ratio 11.0 FINDINGS LEFT VENTRICLE The left ventricular systolic function is low normal with an estimated ejection fraction in the rang e of 50- 55%. Mild concentric left ventricular hypertrophy. Normal left ventricular size. RIGHT VENTRICLE Normal right ventricular size and systolic function. LEFT ATRIUM The left atrial size is [id number] dilated. RIGHT ATRIUM The right atrial size is normal. ATRIAL SEPTUM Normal atrial septal thickness without atrial level shunting by limited color doppler interrogation. AORTA The aortic root and proximal ascending aorta are normal in size on limited imaging. MITRAL VALVE Moderate mitral valve regurgitation. AORTIC VALVE Trileaflet aortic valve. No aortic valve stenosis or regurgitation. TRICUSPID VALVE Structurally normal tricuspid valve. No tricuspid valve stenosis or regurgitation. PULMONARY VALVE Trivial pulmonary valve regurgitation. VESSELS The inferior vena cava is normal in size. PERICARDIUM No pericardial effusion. Tab Epperson MD, FACC, [facility] [place] (Electronically Signed) Final Date:21 September 2017 21:55
[2017-09-22 00:28] VITALS: BP 136/78; PULSE 74; RESP 20; TEMP 97.5; O2SAT 94
[2017-09-22] MEDS: INSULIN NovoLIN REGULAR SUPPLEMENTAL SCALE SQ SCH ×3 (01:45→09:45)
[2017-09-22] MEDS: CHLORHEXIDINE GLUCONATE 2 % 1 PACK (2 CLOTHS) TOP SCH (02:02)
[2017-09-22 05:14] VITALS: BP 140/84; PULSE 70; RESP 20; TEMP 97.7; O2SAT 95
[2017-09-22] MEDS: LEVOTHYROXINE SODIUM 150 MCG TAB PO SCH (07:13)
[2017-09-22] MEDS: LEVOTHYROXINE SODIUM 50 MCG TAB PO SCH (07:13)
[2017-09-22 08:00] VITALS: BP 129/75; PULSE 77; RESP 20; TEMP 97.6; O2SAT 94
[2017-09-22] MEDS: FENOFIBRATE 145 MG TAB PO SCH (08:35)
[2017-09-22] MEDS: CIPROFLOXACIN 500 MG TAB PO SCH (08:35)
[2017-09-22] MEDS: FAMOTIDINE 20 MG TAB PO SCH (08:36)
[2017-09-22] MEDS: PRAVASTATIN SOD 20 MG TAB PO SCH (08:36)
[2017-09-22] MEDS: PHENYTOIN SODIUM 100 MG CAP PO SCH (08:36)
[2017-09-22] MEDS: HEPARIN SODIUM - SQ 10,000 UNITS/ML VIAL SQ SCH (08:36)
[2017-09-22] MEDS: FLUoxetine HCL 10 MG CAP PO SCH (08:37)
[2017-09-22] MEDS: LISINOPRIL 10 MG TAB PO SCH (08:37)
[2017-09-22] MEDS: FLUoxetine HCL 20 MG CAP PO SCH (08:37)
[2017-09-22] MEDS: DOCUSATE SODIUM 50 MG/SENNA 8.6 MG TAB PO SCH (08:40)
[2017-09-22] MEDS ORDERED: FUROSEMIDE 40 MG TAB PO ONE (09:45)
[2017-09-22 12:25] LABS: HEMATOCRIT 39.2 % (35.0-46.0); HEMOGLOBIN 13.1 GM/DL (11.6-15.3); MEAN CELL VOLUME 87.8 FL (80.0-100.0); MEAN CORPUSCULAR HEMOGLOBIN 29.3 PG (27.0-34.0); MEAN CORPUSCULAR HGB CONC 33.3 % (32.0-36.0); MEAN PLATELET VOLUME 6.8 FL (7.0-11.0); PLATELET COUNT 348 TH/MM3 (150-450); RED BLOOD COUNT 4.47 MIL/MM3 (4.00-5.30); RED CELL DISTRIBUTION WIDTH 14.7 % (11.6-17.2); WHITE BLOOD COUNT 6.9 TH/MM3 (4.0-11.0)
[2017-09-22 12:49] VITALS: BP 135/77; PULSE 73; RESP 20; TEMP 97.6; O2SAT 95
[2017-09-22 12:49] LABS: ALBUMIN 3.1 GM/DL (3.4-5.0); ALT (GPT) 44 U/L (10-53); AST (GOT) 34 U/L (15-37); BICARBONATE 27.2 MEQ/L (21.0-32.0); BLOOD UREA NITROGEN 10 MG/DL (7-18); CHLORIDE 104 MEQ/L (98-107); CREATININE 0.53 MG/DL (0.50-1.00); GLOMERULAR FILTRATION RATE 123 ML/MIN (>89); GLUCOSE,RANDOM 146 MG/DL (74-106); MAGNESIUM 2.1 MG/DL (1.5-2.5); PHOSPHORUS 3.7 MG/DL (2.5-4.9); SODIUM (NA) 139 MEQ/L (136-145)
[2017-09-22 12:51] LABS: ALKALINE PHOSPHATASE 87 U/L (45-117); TOTAL BILIRUBIN ADULT 0.1 MG/DL (0.2-1.0); TOTAL PROTEIN 7.1 GM/DL (6.4-8.2)
--- NOTE | 2017-09-22 13:21 | HHI.DS ---
Discharge Summary Admission Date Sep 16, 2017 at 13:40 Discharge Date: Sep 22, 2017 Admitting Diagnosis AMS, status epilepticus (1) Respiratory failure ICD Code: J96.90 - Respiratory failure, unspecified, unspecified whether with hypoxia or hypercapnia (2) UTI (urinary tract infection) ICD Code: N39.0 - Urinary tract infection, site not specified Status: Acute (3) Hypothyroidism ICD Code: E03.9 - Hypothyroidism, unspecified (4) Encephalopathy acute ICD Code: G93.40 - Encephalopathy, unspecified Procedures intubation/extubation Brief History - From Admission Patient is a 47-year-old female with a history of hypothyroidism, diabetes mellitus, anxiety, depression, who presented to [facility] ED via EMS for altered mental status. Per ED records, EMS found the patient unresponsive and her boyfriend related a possible seizure-like activity. The patient has no history of any seizure disorder. In the ED, she was intubated with etomidate and succinylcholine and placed on full mechanical ventilation for airway protection. A CT scan of the brain was unremarkable. In the ED, she was given 1 gram of Keppra and 1 gram loading dose of Cerebyx. The patient is currently getting an EEG and she is scheduled to undergo MRI of the brain without contrast. Dr. Ralph from Neurology service was notified by ED regarding the above findings. When seen, the patient is sedated with Diprivan and on full mechanical ventilation. ABG post-intubation showed a pH of 7.35, CO2 46, PaO2 109, bicarbonate 25, saturation 96%. Her urine drug screen was positive for amphetamines. CBC/BMP: 09/22/17 1210 09/22/17 1210 Significant Findings Laboratory Tests Test 09/20/17 05:25 09/21/17 05:30 09/22/17 12:10 Random Glucose 118 MG/DL (74-106) 146 MG/DL (74-106) Calcium Level 8.4 MG/DL (8.5-10.1) Potassium Level 3.2 MEQ/L (3.5-5.1) 3.4 MEQ/L (3.5-5.1) Mean Platelet Volume 6.8 FL (7.0-11.0) Albumin 3.1 GM/DL (3.4-5.0) Total Bilirubin 0.1 MG/DL (0.2-1.0) Imaging Last Impressions Head CT 09/16/17 1116 Signed Impressions: CONCLUSION: Negative noncontrast head CT. Chest X-Ray 09/16/17 1116 Signed Impressions: CONCLUSION: Endotracheal tube needs to be repositioned. Nasogastric tube could be advanced slightly Brain MRI 09/16/17 0000 Signed Impressions: CONCLUSION: Negative MR Brain with and without contrast. PE at Discharge GENERAL: on oxygen mask CARDIOVASCULAR: Regular rate and regular rhythm without murmurs, gallops, or rubs. RESPIRATORY: Clear to auscultation. Breath sounds equal bilaterally. No wheezes , rales, or rhonchi. GASTROINTESTINAL: Abdomen soft, non-tender, nondistended. Normal, active bowel sounds MUSCULOSKELETAL: Extremities without clubbing, cyanosis, or edema. NEURO: Alert & Oriented x4 to person, place, time, situation. Moves all ext x4 Hospital Course She was admitted to the intensive care unit, intubated, mechanically ventilated and extubated later. Treated with oxygen and DuoNeb treatments. Pulmonary consulted. Patient also had some encephalopathy thought to be a possible seizure disorder. Treated with Dilantin with follow-up of Dilantin level which was therapeutic. Neurology was consulted and followed the patient. UTI status post IV antibiotics. Urine culture grew E. coli. Synthroid was continued for hypothyroidism. The echocardiogram showed a low normal ejection fraction in the range of 50-55%. Mild concentric left ventricular hypertrophy. Normal left ventricular size. Left atrial size is mild to moderately dilated. Patient eventually improved and was taken off of oxygen tolerating room air very well. Cultures were negative 5. The patient was advised not to drive until cleared by a neurologist. Patient was placed on SSI with insulin NovoLog to control blood sugars and diabetes. Blood sugar stable prior to discharge. Pt Condition on Discharge: Stable Discharge Disposition: Disch w/ Home Health Serv Discharge Time: > 30 minutes Discharge Instructions DIET: Follow Instructions for: As Tolerated, No Restrictions Activities you can perform: See Additionl Instruction Other Activity Instructions: as per PT instructions OOB with assistance Follow up Referrals: PCP Follow-up Psychiatry Adult Pulmonology New Medications: Fluoxetine (Fluoxetine) 20 Mg Capsule 40 MG PO DAILY for depression for 30 Days, #60 TAB 0 Refills Phenytoin Extended (Dilantin) 100 Mg Cap 200 MG PO BID for seizure for 30 Days, #120 CAP 0 Refills Continued Medications: Aripiprazole (Abilify) 20 Mg Tab 20 MG PO HS, #30 TAB 0 Refills Fenofibrate (Fenofibrate) 145 Mg Tab 145 MG PO DAILY, #30 TAB 0 Refills Levothyroxine (Levothyroxine) 150 Mcg Tab 150 MCG PO DAILY for Thyroid, #30 TAB 0 Refills Lisinopril (Lisinopril) 10 Mg Tab 10 MG PO DAILY, #30 TAB 0 Refills Lorazepam (Lorazepam) 0.5 Mg Tab 0.5 MG PO TID, TAB 0 Refills Lovastatin (Lovastatin) 20 Mg Tab 20 MG PO DAILY for Cholesterol Management, #30 TAB 0 Refills Metformin (Metformin) 500 Mg Tab 500 MG PO BIDPC for Blood Sugar Management, #60 TAB 0 Refills Discontinued Medications: Bupropion HCl ER 24 HR (Bupropion HCl ER 24 HR) 300 Mg Tab 450 MG PO DAILY for Control Depression, TAB 0 Refills Fluoxetine (Fluoxetine) 40 Mg Cap 20 CAP PO DAILY, #3 CAP 0 Refills Diony Wilkins MD Sep 22, 2017 13:21
== END 2017-09-22 14:13 | disposition home health service (06) | DRG 100 ==
LOC: NEPE 10:54 → NEDA 13:40 → HIMN 15:40 → N05A 09-20 16:54
PROVIDERS: ADMIT Hospitalist; ATTEND Hospitalist
PROC: 0BH17EZ Insertion of Endotracheal Airway into Trachea, Via Natural or Artificial Opening (ICD-10-PCS; principal; 2017-09-16)
PROC: 5A1945Z Respiratory Ventilation, 24-96 Consecutive Hours (ICD-10-PCS; 2017-09-16)
DX: G40.409 Other generalized epilepsy and epileptic syndromes, not intractable, without status epilepticus (principal); J96.90 Respiratory failure, unspecified, unspecified whether with hypoxia or hypercapnia; N39.0 Urinary tract infection, site not specified; Z68.41 Body mass index [BMI] 40.0-44.9, adult; J98.11 Atelectasis; E11.65 Type 2 diabetes mellitus with hyperglycemia; E78.5 Hyperlipidemia, unspecified; E66.01 Morbid (severe) obesity due to excess calories; E03.9 Hypothyroidism, unspecified; B96.20 Unspecified Escherichia coli [E. coli] as the cause of diseases classified elsewhere; J44.9 Chronic obstructive pulmonary disease, unspecified; F25.9 Schizoaffective disorder, unspecified; G47.33 Obstructive sleep apnea (adult) (pediatric); I11.9 Hypertensive heart disease without heart failure; F17.200 Nicotine dependence, unspecified, uncomplicated; F32.9 Major depressive disorder, single episode, unspecified; F41.9 Anxiety disorder, unspecified; Z79.84 Long term (current) use of oral hypoglycemic drugs; Z81.8 Family history of other mental and behavioral disorders; Z91.5 Personal history of self-harm
CPT/HCPCS: 31500; 36600; 51702; 70450; 70553; 71045; 76937; 80048; 80053; 80185; 80307; 81001; 82550; 82552; 82805; 82948; 83735; 84100; 84132; 84439; 84443; 84481; 84484; 84702; 84703; 85025; 85027; 85610; 85730; 87040; 87070; 87077; 87086; 87186; 87205; 87641; 93005; 93306; 94002; 94003; 94150; 94618; 94640; 94664; 95819; 96365; 96366; 96367; 96368; 96375; A9579; J0330; J0456; J0692; J1644; J1953; J2060; J2543; J3370; J7030; J7050; Q2009